=== PATIENT | male | born 1940 | race Hispanic/Latino ===

== ENCOUNTER 2019-03-27 10:04 | Inpatient (IN) | payer MEDICARE, MEDICAID ==
[2019-03-27 10:31] LABS: #Eosinphils 0.2 thou/uL (0.0-0.7); #Lymphocytes 1.5 thou/uL (1.20-3.40); #Monocytes 0.4 thou/uL (0.11-0.59); #Neutrophils 3.9 thou/uL (1.40-6.50); %Basophils 0.4 % (0.0-1.0); %Eosinophils 2.9 % (0.0-10.0); %Neutrophils 65.7 % (42.0-75.0); Hemoglobin 15.9 g/dL (14.0-18.0); Mean Corpuscular HGB CONC 34.1 g/dL (32.0-36.0); Mean Corpuscular Hemoglobin 31.7 pg (27.0-31.0); Mean Platelet Volume 8.7 fL (7.4-10.4); Platelet Count 141 thou/uL (130-400); Red Blood Cell (RBC) Count 5.01 mill/uL (4.70-6.10)
--- NOTE | 2019-03-27 10:43 | RAD ---
PORTABLE CHEST ONE VIEW: 03/27/2019 10:35 a.m. HISTORY: Chest pain. FINDINGS: The heart size is borderline. The aorta is tortuous. The lungs are well expanded without focal area s of consolidation, pneumothoraces, or pleural effusions. IMPRESSION: No acute process. POS: RAFAEL
[2019-03-27 10:50] LABS: ALT (SGPT) 24 U/L (8-55); AST (SGOT) 20 U/L (5-34); Alkaline Phosphatase 87 U/L (40-150); Anion Gap 13 mmol/L (10-20); BUN (Urea Nitrogen) 19 mg/dL (8.4-25.7); Bilirubin, Total 0.7 mg/dL (0.2-1.2); Calc. Creatinine Clearance 0 mL/min (70-130); Carbon Dioxide 24 mmol/L (23-31); Chloride 108 mmol/L (98-107); Estimated GFR-MDRD 45; Globulin 2.7 g/dL (2.4-3.5); Glucose 126 mg/dL (83-110); Protein, Total 6.7 g/dL (5.8-8.1); Sodium 141 mmol/L (136-145)
[2019-03-27 11:17] LABS: CKMB 0.8 ng/mL (0-6.6)
[2019-03-27] MEDS ORDERED: Nitroglycerin 2% Ointment 1 INCH/1 GM Packet ONE (11:28)
[2019-03-27] MEDS ORDERED: Aspirin 325 MG TAB ONE (11:28)
[2019-03-27] MEDS ORDERED: Acetaminophen 325 MG TAB PO PRN ×2 (12:59→13:14)
[2019-03-27] MEDS ORDERED: Ondansetron PF 4 MG/2 ML Vial IVP PRN (12:59)
[2019-03-27] MEDS ORDERED: Ondansetron ODT 4 MG TAB SL PRN (12:59)
[2019-03-27] MEDS ORDERED: Senokot S 8.6-50 MG TAB PO PRN (13:14)
[2019-03-27 13:49] LABS: Troponin I 0.044 ng/mL (< 0.028)
[2019-03-27] MEDS ORDERED: HumaLOG 300 UNITS/3 ML VIAL SC PRN (14:07)
[2019-03-27] MEDS ORDERED: Dextrose 5% in Water 1,000 ML IV PRN (14:07)
[2019-03-27] MEDS ORDERED: Dextrose 50% Abboject 50 ML SYRINGE SLOW IVP PRN (14:07)
[2019-03-27] MEDS ORDERED: Enoxaparin Sodium 80 MG/0.8 ML SYRINGE SC SCH ×2 (14:30→21:00)
[2019-03-27 17:01] LABS: Troponin I 0.038 ng/mL (< 0.028)
--- NOTE | 2019-03-27 19:52 | HP ---
CHIEF COMPLAINT: Chest pain. HISTORY OF PRESENT ILLNESS: The patient is a 78-year-old male with a history of diabetes, hypertension, hyperlipidemia, and CAD with stents x2 sometimes in 2010, I believe, the patient's family is not sure. The patient came in today with worsening chest discomfort. Upon talking with the patient who is not a very good historian, his helped out some. She stated that for the past 6 days his chest pain has worsened. They were at a camping trip today and he was found on his niece having significant amount of chest pain, which concerned the so they packed up early and brought him to the closest ER, which was [facility]. His also states that he has been having some shortness of breath on exertion going on for some time. She could not exactly tell me how many months or days. However, for the past 6 days, he has been having worsening shortness of breath on exertion and chest tightness with radiating pain to his left jaw. He denies any fevers or chills. He denies any nausea, vomiting, or diaphoresis. The patient's last stress test was about 2 years ago. He has not followed up with his personal clothing laundry aide for about a year. He does have a followup appointment in April with his personal clothing laundry aide. PAST MEDICAL HISTORY: History of CAD stents x2. He has a history of diabetes, hypertension, and high cholesterol. FAMILY HISTORY: Parents having strokes. PAST SURGICAL HISTORY: He has just had stents x2. He has had some foot surgery on his right foot. SOCIAL HISTORY: He was a former smoker. Currently, denies any smoking, alcohol, or drug use. He is a full code. Lives with his family. His personal clothing laundry aide is in [place]. REVIEW OF SYSTEMS: All negative except for the ones mentioned above in the HPI. PHYSICAL EXAMINATION: VITAL SIGNS: Are as of the following; temperature 97.4, pulse 66, respirations 18, O2 saturation 96% on room air, and blood pressure 140/74. GENERAL: He is awake, alert, and oriented x3. Does not appear in any distress. CV: S1 and S2 present. No murmurs, rubs, or gallops. LUNGS: Clear to auscultation. No rhonchi or wheezes noted. ABDOMEN: Soft and nontender. Bowel sounds are present x2. EXTREMITIES: No edema. Pedal pulses are present x2. NEUROVASCULAR: There were no focal deficits noted. SKIN: No cuts, lesions, or bruises noted. LABORATORY RESULTS: As of the following; WBCs of 6.0, hemoglobin of 15.9, hematocrit of 46.6, platelets of 141. Chemistry; sodium of 141, potassium of 4.0, BUN of 19, creatinine of 1.50. His troponins are mildly elevated at 0.042 and 0.044. Chest x-ray that was done did not show any acute abnormalities. His EKG indicates a left bundle branch block. I am not sure this is new since he has never been here before. He is from [place]. ASSESSMENT AND PLAN: The patient is a 78-year-old male, who comes into the hospital with complaints of chest pain. 1. Onq-MM-[id number] myocardial infarction. The patient does have indeterminate troponins. Given his history of chest pain, he is not a very good historian. However, according to the family and the way the patient was describing his symptoms, this could be concern given his history of hypertension, diabetes, history of coronary artery disease, and his age, we will go ahead and start him on Lovenox 1 mg/kg b.i.d. I will consult Cardiology. Continue to trend his troponins. He may require stress test even at cardiac catheterization. We will continue the statin. We will check lipid panel in the morning. Continue his diabetic medications. 2. Chronic kidney disease, stage 3. We will continue to monitor. We will start him on some IV hydration. 3. Diabetes. We will continue his Lantus and also add sliding scale insulin. 4. Hypertension. We will continue his home medications. 5. Deep venous thrombosis prophylaxis. We will already put the patient on Lovenox 1 mg/kg that will cover for DVT prophylaxis. Job ID: [id number]
[2019-03-27] MEDS: Atorvastatin Calcium 20 MG TAB PO SCH (20:28)
[2019-03-27] MEDS: Gabapentin 300 MG CAP PO SCH (20:28)
[2019-03-27] MEDS: Mirtazapine 15 MG Soltab PO SCH (20:29)
--- NOTE | 2019-03-27 21:15 | CON ---
DATE OF CONSULTATION: HISTORY OF PRESENT ILLNESS: Jamil Pérez is a pleasant 78-year-old male from the [facility], admitted with chest discomfort. He does not recall what year, but many years in the past, he had 2 stents placed at one time in his coronary arteries. He followed with his insurance claims processor regularly, but has not seen him in one year. Over the last 6 days, he has started noticing exertional chest pressure associated with shortness of breath. No vomiting or diaphoresis. This usually will occur with walking and be relieved with rest in 15-20 minutes. He also has had one or two nocturnal episodes. He was on a camping trip and had similar type of symptoms with radiation of pain to his left jaw and his family became concerned and so brought him to the nearest hospital which was [facility]. At the present time, he denies any chest discomfort. PAST MEDICAL HISTORY: Coronary artery disease, diabetes, hypertension, hypercholesterolemia. MEDICATIONS: 1. Aspirin 81 daily. 2. Amlodipine 10 mg daily. 3. Wellbutrin 150 daily. 4. Carvedilol 6.25 b.i.d. 5. Vitamin D. 6. B12. 7. Furosemide 40 daily. 8. Gabapentin 300 mg at bedtime. 9. Lantus 20 units q.a.m. 10. Isosorbide mononitrate 60 daily. 11. Victoza subcu daily. 12. Mirtazapine 15 mg at bedtime. 13. Protonix 40 daily. 14. Pravastatin 80 at bedtime. 15. Triamcinolone nasal spray. ALLERGIES: NONE. SOCIAL HISTORY: He stopped smoking 20 years ago and smoked a pack per day. He does not drink. FAMILY HISTORY: Negative for coronary artery disease except for a sister who recently had bypass surgery. REVIEW OF SYSTEMS: A 10-point review of systems is otherwise unremarkable. PHYSICAL EXAMINATION: VITAL SIGNS: Blood pressure 140/79, pulse 76. HEENT: PERRL. NECK: Supple. CHEST: Clear. CARDIAC: S1 and S2 are normal without any S3, S4, or murmurs. Carotid upstroke is normal without bruits. ABDOMEN: Normal bowel sounds without tenderness or organomegaly. EXTREMITIES: Reveal no clubbing, cyanosis, or edema. NEUROLOGIC: Grossly intact. SKIN: Warm and dry. LABORATORY DATA: EKG revealed normal sinus rhythm with left bundle-branch block. Troponin I is up to 0.044. Sodium 141, potassium 4.0, chloride 108, carbon dioxide 24, BUN 19, creatinine 1.50, glucose 126. CBC is unremarkable. IMPRESSION: 1. History compatible with acute coronary syndrome with increasing exertional chest discomfort over the last 6 days. 2. History of previous coronary artery stent placement. He states he did not have any bleeding problems with the medicines that he had to take after his stents were placed. 3. Hypertension. 4. Diabetes. 5. Hypercholesterolemia. 6. Chronic kidney disease. 7. Left bundle branch block. RECOMMENDATIONS: I would resume his carvedilol 6.[address] also [address] him on aspirin 325 q.a.m. He has already received loading dose of aspirin in the emergency room. Echocardiogram will be performed to assess left ventricular function. It also was recommended he undergo cardiac catheterization. Risks of this were discussed with the patient's including , myocardial infarction, dye reaction, vascular injury, CVA, transfusion, limb loss, renal loss, etc. Also risks of intervention with PTCA and stent placement were discussed including , myocardial infarction, emergent CABG, restenosis, stent thrombosis, vessel perforation, etc. We discussed bare metal stent versus drug-eluting stents. He has never had any gastrointestinal bleeding or significant stroke. He does not have any upcoming surgery and overall it is recommended that a drug-eluting stent be placed if required. Job ID: [id number] MTDD
[2019-03-27] MEDS: Sodium Chloride 0.9% 1,000 ML IV SCH (21:22)
[2019-03-27] MEDS: Communication Order-Pharmacy FS SCH (21:31)
[2019-03-28 05:34] LABS: #Eosinphils 0.2 thou/uL (0.0-0.7); #Lymphocytes 1.5 thou/uL (1.20-3.40); #Monocytes 0.4 thou/uL (0.11-0.59); #Neutrophils 3.2 thou/uL (1.40-6.50); %Basophils 0.5 % (0.0-1.0); %Lymphocytes 28.8 % (21.0-51.0); %Neutrophils 59.7 % (42.0-75.0); Hemoglobin 15.1 g/dL (14.0-18.0); Mean Corpuscular HGB CONC 33.8 g/dL (32.0-36.0); Mean Corpuscular Hemoglobin 31.5 pg (27.0-31.0); Mean Corpuscular Volume 93.4 fL (78.0-98.0); Mean Platelet Volume 8.7 fL (7.4-10.4); Platelet Count 137 thou/uL (130-400); RBC Distribution Width 11.9 % (11.5-14.5); Red Blood Cell (RBC) Count 4.79 mill/uL (4.70-6.10); White Blood Cell (WBC) Count 5.3 thou/uL (4.8-10.8)
[2019-03-28] MEDS: Amlodipine 10 MG TAB PO SCH (05:55)
[2019-03-28] MEDS: Bupropion 150 MG SR TAB PO SCH (05:55)
[2019-03-28 05:56] LABS: Anion Gap 14 mmol/L (10-20); BUN (Urea Nitrogen) 22 mg/dL (8.4-25.7); Calc. Creatinine Clearance 43 mL/min (70-130); Calcium 9.4 mg/dL (7.8-10.44); Carbon Dioxide 25 mmol/L (23-31); Chloride 107 mmol/L (98-107); Estimated GFR-MDRD 44; Glucose 113 mg/dL (83-110); Potassium 3.4 mmol/L (3.5-5.1); Sodium 143 mmol/L (136-145)
[2019-03-28] MEDS: Carvedilol 6.25 MG TAB PO SCH ×2 (05:56→17:24)
[2019-03-28] MEDS: Aspirin 325 mg Enteric Coated Tablet PO SCH (05:56)
[2019-03-28] MEDS: Insulin Glargine 20 UNITS in Pre-Filled Syringe 1 EACH SC SCH (08:15)
[2019-03-28] MEDS: Sodium Chloride 0.9% 1,000 ML IV SCH ×2 (08:19→09:05)
[2019-03-28] MEDS ORDERED: Iopamidol 370 76% 100 ML VIAL ONE (09:08)
[2019-03-28] MEDS ORDERED: Iopamidol 370 76% 50 ML VIAL FS ONE (09:08)
[2019-03-28] MEDS: Fluticasone Propionate Nasal Spray 16 gm Bottle NASAL PRN (09:23)
[2019-03-28] MEDS ORDERED: Heparin 10,000 UNITS/1 ML VIAL ONE (12:03)
[2019-03-28] MEDS ORDERED: Lidocaine 1% (PF) 30 ML VIAL ONE (12:04)
[2019-03-28] MEDS ORDERED: Fentanyl 100 MCG/2 ML VIAL ONE (13:03)
[2019-03-28] MEDS ORDERED: Midazolam HCl 2 mg/2 ml Vial ONE (13:03)
[2019-03-28] MEDS ORDERED: Protamine Sulfate 50 MG/5 ML VIAL ONE (13:25)
[2019-03-28] MEDS ORDERED: Sodium Chloride 0.9% 200 ML IV PRN (13:44)
[2019-03-28] MEDS ORDERED: Acetaminophen/Codeine 30-300mg Tablet PO PRN ×2 (13:44)
[2019-03-28] MEDS ORDERED: Sodium Chloride 0.9% 1,000 ML IV SCH ×2 (13:46→20:00)
[2019-03-28] MEDS: Nitroglycerin 0.4 MG TAB (25 Tab Bottle) SL PRN ×2 (17:23→23:45)
[2019-03-28] MEDS ORDERED: Communication Order-Pharmacy FS ONE (17:44)
[2019-03-28] MEDS: Mirtazapine 15 MG Soltab PO SCH (21:38)
[2019-03-28] MEDS: Gabapentin 300 MG CAP PO SCH (21:39)
[2019-03-28] MEDS: Docusate 100 MG CAP PO SCH (21:39)
[2019-03-28] MEDS: Atorvastatin Calcium 20 MG TAB PO SCH (21:39)
[2019-03-28] MEDS: Communication Order-Pharmacy FS SCH (21:40)
--- NOTE | 2019-03-29 00:27 | CON ---
DATE OF CONSULTATION: 03/28/2019 REQUESTING PHYSICIAN: Dr. Rishi Hightower. REGULAR ASSOCIATE PROFESSOR OF MATHEMATICS: Dr. Shawn Freeman in [place], [place]. CHIEF COMPLAINT: Chest pain and shortness of breath. HISTORY OF PRESENT ILLNESS: The patient is a 78-year-old diabetic former smoker with known coronary artery disease. The patient is a difficult historian and his helps with some of the details and with some of the explanations that occasionally require translation in U[place]. Different examiners have gotten different time frames for his LAD stenting ranging from the to the early . He apparently still regularly sees a auricular therapist in [place], but it has been about a year since his last scheduled appointment. In retrospect, the patient's exercise tolerance has been somewhat diminished for the last couple of months and he has been gradually developing some dyspnea on exertion. This has been much more dramatic over about the last week and over that same period of time he began developing some chest pressure and burning associated with that dyspnea on exertion. He was in this area on a camping trip and began having worsening symptoms including chest discomfort that for the 1st time radiated to his jaw. His chest pressure typically happens with walking, but this happened at rest at night on two occasions when he had the episode of chest discomfort radiating to his jaws. His family was worried enough to insist that he go to the nearest hospital. He had a left bundle branch block on his EKG and his troponins were mildly elevated and had a trivial change during a 6 hour period of observation. Cardiac catheterization today, however, shows extensive disease with serial high-grade lesions in his right coronary system and a very high-grade mid LAD lesion with a relatively small circumflex system and approximately 50% ostial left main lesion and tapering of the distal left main down to about 50% of the caliber of the mid left main. PAST MEDICAL HISTORY: Significant for his known coronary artery disease, diabetes, hypertension, hypercholesterolemia. HOME MEDICATIONS: 1. Coreg 6.25 mg b.i.d. 2. Norvasc 10 mg daily. 3. Isordil 60 mg daily. 4. Lasix 40 mg daily. 5. Pravastatin 80 mg at bedtime. 6. Lantus insulin 20 units daily. 7. Victoza 1.2 mg subcu once daily. 8. Neurontin 300 mg at bedtime. 9. Vitamin B12 2000 mcg and vitamin D3 5000 units daily. 10. Latanoprost eyedrops. 11. Triamcinolone nasal spray at bedtime. Protonix 40 mg daily. 12. Wellbutrin SR 150 mg daily. 13. Mirtazapine (Remeron) 15 mg at bedtime. 14. One examiner had elicited a history of a baby aspirin daily. His current medications are similar with his aspirin being increased to 325 mg a day. His statin has been switched to Lipitor 20 mg at bedtime. He is still on the same dose of Lantus, but he is on a sliding scale insulin rather than the Victoza. The patient apparently smoked for many years around a pack of cigarettes a day, but quit about 20 years ago. FAMILY HISTORY: Significant for sister who has had coronary bypass surgery. REVIEW OF SYSTEMS: Rather difficult. He gives a variable history and describing some visual disturbances that seem to be blurry vision affecting both eyes rather than any monocular symptoms. He describes some electric shooting type pain in his right leg that interferes with his walking. PHYSICAL EXAMINATION: GENERAL: He is 5 feet 5 inches, weighs 167 pounds. VITAL SIGNS: On presentation in the emergency room his heart rate was 72 and blood pressure 163/101. Currently, his heart rate is 64 and blood pressure 168/79, room air O2 saturations are in the 94-97 percent range. HEENT: He has no xanthelasma. NECK: No JVD. No carotid bruits. CHEST: Clear to auscultation. HEART: He has regular rate and rhythm. ABDOMEN: Soft and nontender without any masses or bruits. He has palpable radial, left femoral and palpable bilateral radial and dorsalis pedis pulses, palpable left femoral pulse. His right femoral was bandaged and I had a difficult time appreciating the pulse. Neither femoral was associated with bruits. He has no clubbing, cyanosis, or edema. He does seem to have some venous stasis pigmentation changes in his feet and in the right ankle. I was able to ballott the saphenous vein at the left ankle. Capillary refill in the toes on both feet was brisk. LABORATORY DATA: Showed a white count of 6.0, hemoglobin 15.9, hematocrit 46.6, and platelets 141,000. Overnight, his hemoglobin was 15.1, hematocrit 44.8. His electrolytes were normal. Glucose 126, BUN 19, creatinine 1.50 with a GFR 45 and recheck this morning, his glucose was 113, BUN 22, creatinine 1.54, and EGFR 43. Calcium is 10.0, albumin 4.0. LFTs were normal. His troponins were 0.042, 0.044 and 0.038. Blood sugars had been in the 99-129 range. His chest x-ray has borderline cardiomegaly and some aortic ectasia, but no obvious aortic knob calcifications. His EKG has left bundle branch block. His cardiac catheterization shows right dominant system with about 99% mid to distal right coronary lesion with a PDA that is grossly free of disease. He has a fairly prominent posterolateral branch. There is some disease in the terminal portion of it where it is a rather small vessel. There is a tiny first branch and a good-sized 2nd branch. There is a proximal 70% to 80% lesion and there is somewhere around a 50% ostial left main lesion and the left main tapers distally down to about 50% of the normal caliber in the mid portion. He has a relatively small circumflex system with what appears to represent an atrial branch that bifurcates with an OM that runs close to the groove and then a bifurcated OM. There is some mild narrowing in the circumflex proper, which is rather large first septal tubular products fabricator and then a trifurcated diagonal that comes off with two more lateral branches being modest size and the most medial branch being tiny. Beyond that is a very high-grade mid LAD lesion. LVEF is around 40% with an LV pressure of 145/9 with an EDP of 14 and aortic pressure on pullback was 137/69 with a mean of 93. IMPRESSION AND PLAN: Left main coronary disease with a very high-grade lesion in the mid left anterior descending artery and in the serial lesions in the right coronary system, mildly decreased left ventricular function. He is a diabetic with mild renal insufficiency, palpable pulses in his feet. No carotid bruits. No convincing central neurologic symptoms (in talking to him about his so-called stroke from many years ago and was told that his stroke is why he had his coronary stenting done). I will plan on hydrating post catheterization through today and tomorrow and plan on coronary artery bypass grafting the day after tomorrow. Job ID: [id number]
[2019-03-29] MEDS: Nitroglycerin 0.4 MG TAB (25 Tab Bottle) SL PRN (01:37)
[2019-03-29 05:47] LABS: Hemoglobin A1c 6.5 % (4.0-6.0)
[2019-03-29 06:04] LABS: Anion Gap 12 mmol/L (10-20); BUN (Urea Nitrogen) 17 mg/dL (8.4-25.7); Calc. Creatinine Clearance 51 mL/min (70-130); Calcium 8.9 mg/dL (7.8-10.44); Carbon Dioxide 20 mmol/L (23-31); Cardiac Risk 3.3 (Less than 4.5); Chloride 111 mmol/L (98-107); Cholesterol 124 mg/dl (< 200 Desired); Estimated GFR-MDRD 50; Glucose 114 mg/dL (83-110); HDL Cholesterol 38 mg/dL (>60 Neg Risk); LDL Cholesterol, Calculated 62 mg/dL; Potassium 3.7 mmol/L (3.5-5.1); Sodium 139 mmol/L (136-145); Triglycerides 121 mg/dL (Less than 150)
[2019-03-29] MEDS: Bupropion 150 MG SR TAB PO SCH (08:24)
[2019-03-29] MEDS: Carvedilol 6.25 MG TAB PO SCH ×2 (08:24→18:28)
[2019-03-29] MEDS: Amlodipine 10 MG TAB PO SCH (08:24)
[2019-03-29] MEDS: Docusate 100 MG CAP PO SCH ×2 (08:24→21:14)
[2019-03-29] MEDS: Aspirin 325 mg Enteric Coated Tablet PO SCH (08:24)
[2019-03-29] MEDS: Insulin Glargine 20 UNITS in Pre-Filled Syringe 1 EACH SC SCH (08:26)
[2019-03-29] MEDS: Sodium Chloride 0.9% 1,000 ML IV SCH (09:40)
--- NOTE | 2019-03-29 19:13 | PDOC.HOSPP ---
- Subjective Encounter Date: 03/29/19 Encounter Time: 10:30 Subjective: pt up in bed no complains - Objective Vital Signs & Weight: Vital Signs (12 hours) Temp Pulse Resp BP BP Pulse Ox 03/29/19 18:28 168/79 H 03/29/19 15:27 97.5 F L 65 16 124/68 95 03/29/19 11:51 97.5 F L 66 20 125/72 94 L 03/29/19 08:24 66 168/79 H 03/29/19 07:54 95 03/29/19 07:46 98 F 67 14 129/73 96 Weight Weight 177 lb 6.4 oz I&O: 03/28/19 03/29/19 03/30/19 06:59 06:59 06:59 Intake Total 1378 1440 Output Total 300 550 Balance 1078 890 Result Diagrams: 03/28/19 05:03 03/29/19 05:16 Additional Labs: Accuchecks 03/29/19 03/29/19 03/29/19 17:06 10:46 05:25 POC Glucose 160 H 186 H 111 H 03/28/19 20:42 POC Glucose 212 H ROS - Review of Systems Respiratory: denies: cough, dry, shortness of breath, hemoptysis, SOB with excertion, pleuritic pain, sputum, wheezing, other Cardiovascular: denies: chest pain, palpitations, orthopnea, paroxysmal noc. dyspnea, edema, light headedness, other Gastrointestinal: denies: nausea, vomitting, abdominal pain, diarrhea, constipation, melena, hematochezia, other - Medication Medications: Active Medications Generic Name Dose Route Start Last Admin Trade Name Wendi PRN Reason Stop Dose Admin Amlodipine Besylate 10 mg 03/28/19 09:00 03/29/19 08:24 Norvasc PO 03/30/19 08:59 10 mg DAILY SAILAJA Administration Aspirin 325 mg 03/28/19 09:00 03/29/19 08:24 Ecotrin PO 03/30/19 08:59 325 mg DAILY SAILAJA Administration Atorvastatin Calcium 20 mg 03/27/19 21:00 03/28/19 21:39 Lipitor PO 03/30/19 08:59 20 mg HS SAILAJA Administration Bupropion HCl 150 mg 03/28/19 09:00 03/29/19 08:24 Wellbutrin Sr PO 03/30/19 08:59 150 mg DAILY SAILAJA Administration Carvedilol 12.5 mg 03/29/19 17:00 03/29/19 18:28 Coreg PO 12.5 mg BID-WM SAILAJA Administration Docusate Sodium 100 mg 03/28/19 21:00 03/29/19 08:24 Colace PO 03/30/19 08:59 100 mg BID SAILAJA Administration Fluticasone Propionate 0 gm 03/28/19 08:46 03/28/19 09:23 Flonase Nasal [place] NASAL 03/30/19 08:59 1 spray PRN PRN Administration CONGESTION Gabapentin 300 mg 03/27/19 21:00 03/28/19 21:39 Neurontin PO 03/30/19 08:59 300 mg HS SAILAJA Administration Insulin Glargine 20 units/ 0.2 mls @ 0 mls/hr 03/28/19 09:00 03/29/19 08:26 Miscellaneous Medication SC 03/30/19 08:59 0.2 mls QAM SAILAJA Administration Sodium Chloride 1,000 mls @ 50 mls/hr 03/29/19 08:11 03/29/19 09:40 Normal Saline 0.9% IV 03/30/19 12:00 Not Given .Q20H SAILAJA Isosorbide Mononitrate 60 mg 03/28/19 09:00 03/29/19 08:24 Imdur PO 03/30/19 08:59 60 mg DAILY SAILAJA Administration Mirtazapine 15 mg 03/27/19 21:00 03/28/19 21:38 Remeron Soltab PO 03/30/19 08:59 15 mg HS SAILAJA Administration Miscellaneous Information 0 each 03/27/19 20:30 03/28/19 21:40 Communication Order-Pharmacy FS 03/30/19 08:59 Not Given 2030 SAILAJA Nitroglycerin 0.4 mg 03/28/19 13:44 03/29/19 01:37 Nitrostat SL 03/30/19 08:59 0.4 mg Q5MIN PRN Administration Chest Pain Pantoprazole Sodium 40 mg 03/28/19 09:00 03/29/19 08:24 Protonix PO 03/30/19 08:59 40 mg DAILY SAILAJA Administration Sodium Chloride 10 ml 03/29/19 09:00 03/29/19 15:53 Flush - Normal Saline IVF Not Given Q12HR SAILAJA - Exam ENT: negative: normocephalic atraumatic, no oropharyngeal lesions, moist mucosa , dry oral mucosa Neck: negative: supple, symmetric, no JVD, no thyromegaly, no lymphadenopathy, no carotid bruit, JVD Heart: negative: RRR, no murmur, no gallops, no rubs, normal peripheral pulses, irregular, diminshed peripheral pulses, murmur present, II/IV, III/IV Hosp A/P (1) NSTEMI (non-ST elevated myocardial infarction) Code(s): I21.4 - NON-ST ELEVATION (NSTEMI) MYOCARDIAL INFARCTION Status: Acute (2) CAD (coronary artery disease) Code(s): I25.10 - ATHSCL HEART DISEASE OF [place] CORONARY ARTERY W/O ANG PCTRS Status: Acute (3) Diabetes Code(s): E11.9 - TYPE 2 DIABETES MELLITUS WITHOUT COMPLICATIONS Status: Acute - Plan pt up in bed no complains. will undergo CABG in am
--- NOTE | 2019-03-29 19:16 | PDOC.HOSPP ---
- Subjective Encounter Date: 03/28/19 Encounter Time: 11:30 Subjective: pt up in bed complains of some chest pain - Objective Vital Signs & Weight: Vital Signs (12 hours) Temp Pulse Resp BP BP Pulse Ox 03/29/19 18:28 168/79 H 03/29/19 15:27 97.5 F L 65 16 124/68 95 03/29/19 11:51 97.5 F L 66 20 125/72 94 L 03/29/19 08:24 66 168/79 H 03/29/19 07:54 95 03/29/19 07:46 98 F 67 14 129/73 96 Weight Weight 177 lb 6.4 oz I&O: 03/28/19 03/29/19 03/30/19 06:59 06:59 06:59 Intake Total 1378 1440 Output Total 300 550 Balance 1078 890 Result Diagrams: 03/28/19 05:03 03/29/19 05:16 Additional Labs: Accuchecks 03/29/19 03/29/19 03/29/19 17:06 10:46 05:25 POC Glucose 160 H 186 H 111 H 03/28/19 20:42 POC Glucose 212 H ROS - Review of Systems Cardiovascular: reports: chest pain. denies: palpitations, orthopnea, paroxysmal noc. dyspnea, edema, light headedness, other Gastrointestinal: denies: nausea, vomitting, abdominal pain, diarrhea, constipation, melena, hematochezia, other - Medication Medications: Active Medications Generic Name Dose Route Start Last Admin Trade Name Freq PRN Reason Stop Dose Admin Amlodipine Besylate 10 mg 03/28/19 09:00 03/29/19 08:24 Norvasc PO 03/30/19 08:59 10 mg DAILY SAILAJA Administration Aspirin 325 mg 03/28/19 09:00 03/29/19 08:24 Ecotrin PO 03/30/19 08:59 325 mg DAILY SAILAJA Administration Atorvastatin Calcium 20 mg 03/27/19 21:00 03/28/19 21:39 Lipitor PO 03/30/19 08:59 20 mg HS SAILAJA Administration Bupropion HCl 150 mg 03/28/19 09:00 03/29/19 08:24 Wellbutrin Sr PO 03/30/19 08:59 150 mg DAILY SAILAJA Administration Carvedilol 12.5 mg 03/29/19 17:00 03/29/19 18:28 Coreg PO 12.5 mg BID-WM SAILAJA Administration Docusate Sodium 100 mg 03/28/19 21:00 03/29/19 08:24 Colace PO 03/30/19 08:59 100 mg BID SAILAJA Administration Fluticasone Propionate 0 gm 03/28/19 08:46 03/28/19 09:23 Flonase Nasal [place] NASAL 03/30/19 08:59 1 spray PRN PRN Administration CONGESTION Gabapentin 300 mg 03/27/19 21:00 03/28/19 21:39 Neurontin PO 03/30/19 08:59 300 mg HS SAILAJA Administration Insulin Glargine 20 units/ 0.2 mls @ 0 mls/hr 03/28/19 09:00 03/29/19 08:26 Miscellaneous Medication SC 03/30/19 08:59 0.2 mls QAM SAILAJA Administration Sodium Chloride 1,000 mls @ 50 mls/hr 03/29/19 08:11 03/29/19 09:40 Normal Saline 0.9% IV 03/30/19 12:00 Not Given .Q20H SAILAJA Isosorbide Mononitrate 60 mg 03/28/19 09:00 03/29/19 08:24 Imdur PO 03/30/19 08:59 60 mg DAILY SAILAJA Administration Mirtazapine 15 mg 03/27/19 21:00 03/28/19 21:38 Remeron Soltab PO 03/30/19 08:59 15 mg HS SAILAJA Administration Miscellaneous Information 0 each 03/27/19 20:30 03/28/19 21:40 Communication Order-Pharmacy FS 03/30/19 08:59 Not Given 2030 SAILAJA Nitroglycerin 0.4 mg 03/28/19 13:44 03/29/19 01:37 Nitrostat SL 03/30/19 08:59 0.4 mg Q5MIN PRN Administration Chest Pain Pantoprazole Sodium 40 mg 03/28/19 09:00 03/29/19 08:24 Protonix PO 03/30/19 08:59 40 mg DAILY SAILAJA Administration Sodium Chloride 10 ml 03/29/19 09:00 03/29/19 15:53 Flush - Normal Saline IVF Not Given Q12HR SAILAJA - Exam Neck: negative: supple, symmetric, no JVD, no thyromegaly, no lymphadenopathy, no carotid bruit, JVD Heart: negative: RRR, no murmur, no gallops, no rubs, normal peripheral pulses, irregular, diminshed peripheral pulses, murmur present, II/IV, III/IV Respiratory: negative: CTAB, no wheezes, no rales, no ronchi, normal chest expansion, no tachypnea, normal percussion, rales, rhonchi, tachypneic, wheezes Hosp A/P (1) NSTEMI (non-ST elevated myocardial infarction) Code(s): I21.4 - NON-ST ELEVATION (NSTEMI) MYOCARDIAL INFARCTION Status: Acute (2) CAD (coronary artery disease) Code(s): I25.10 - ATHSCL HEART DISEASE OF [place] CORONARY ARTERY W/O ANG PCTRS Status: Acute (3) Diabetes Code(s): E11.9 - TYPE 2 DIABETES MELLITUS WITHOUT COMPLICATIONS Status: Acute - Plan 03/28 s/p cardiac cath will need CABG per report. cv surgery to see pt. pt up in bed no complains. will undergo CABG in am
[2019-03-29] MEDS: Gabapentin 300 MG CAP PO SCH (21:15)
[2019-03-29] MEDS: Atorvastatin Calcium 20 MG TAB PO SCH (21:15)
[2019-03-29] MEDS: Fluticasone Propionate Nasal Spray 16 gm Bottle NASAL PRN (23:29)
[2019-03-29] MEDS: Mirtazapine 15 MG Soltab PO SCH (23:42)
[2019-03-29] MEDS ORDERED: Mirtazapine 15 MG Soltab PO SCH (23:45)
[2019-03-29] MEDS: Communication Order-Pharmacy FS SCH (23:51)
[2019-03-30] MEDS: Sodium Chloride 0.9% 1,000 ML IV SCH ×3 (03:02→20:49)
[2019-03-30 04:46] LABS: Anion Gap 11 mmol/L (10-20); BUN (Urea Nitrogen) 20 mg/dL (8.4-25.7); Calc. Creatinine Clearance 51 mL/min (70-130); Calcium 8.8 mg/dL (7.8-10.44); Carbon Dioxide 21 mmol/L (23-31); Chloride 113 mmol/L (98-107); Estimated GFR-MDRD 50; Glucose 125 mg/dL (83-110); Potassium 3.9 mmol/L (3.5-5.1); Sodium 141 mmol/L (136-145)
[2019-03-30] MEDS: Carvedilol 6.25 MG TAB PO SCH (05:31)
[2019-03-30] MEDS ORDERED: CEFAZOLIN 2 GM in Premix Bag 1 BAG IVPB SCH (06:00)
[2019-03-30] MEDS ORDERED: ceFAZolin Sodium (SDC) 2 GM/100 ML BAG ONE (06:16)
[2019-03-30] MEDS ORDERED: Midazolam HCl 2 mg/2 ml Vial ONE (06:35)
[2019-03-30] MEDS ORDERED: Fentanyl 100 MCG/2 ML VIAL ONE (06:35)
[2019-03-30] MEDS ORDERED: Dexmedetomidine 200 MCG/2 ML VIAL ONE (06:36)
[2019-03-30] MEDS ORDERED: Midazolam HCl 5 mg/5 ml Vial ONE (06:36)
[2019-03-30] MEDS ORDERED: Vecuronium 10 MG VIAL ONE ×2 (06:36→10:57)
[2019-03-30] MEDS: Nitroglycerin 0.4 MG TAB (25 Tab Bottle) SL PRN (06:41)
[2019-03-30] MEDS ORDERED: Heparin 10,000 UNITS/1 ML VIAL 30,000 UNITS in Sodium Chloride 0.9% 1,000 ML FS SCH (07:00)
[2019-03-30] MEDS ORDERED: Albumin 5% 500 ML ONE (09:02)
[2019-03-30] MEDS ORDERED: Protamine Sulfate 250 MG/25 ML VIAL ONE (10:57)
[2019-03-30] MEDS ORDERED: Papaverine 60 MG/2 ML VIAL ONE (10:57)
[2019-03-30] MEDS ORDERED: Dexamethasone 20 MG/5 ML VIAL ONE (10:57)
[2019-03-30] MEDS ORDERED: Insulin Regular 300 UNITS/3 ML VIAL ONE (10:57)
[2019-03-30] MEDS ORDERED: PHENYLEPHRINE-NS 100 MCG/ML 10 ML SYRINGE ONE (10:57)
[2019-03-30] MEDS ORDERED: Mannitol 12.5 GM/50 ML ONE (10:57)
[2019-03-30] MEDS ORDERED: Ondansetron PF 4 MG/2 ML Vial ONE (10:57)
[2019-03-30] MEDS ORDERED: Calcium Chloride 1 GM/10 ML Abboject SYRINGE ONE (10:57)
[2019-03-30] MEDS ORDERED: Nitroglycerin 50 MG/250 ML BOT ONE (10:57)
[2019-03-30] MEDS ORDERED: Cardioplegic Soln 1,000 ML BAG ONE (10:57)
[2019-03-30] MEDS ORDERED: Esmolol 100 MG/10 ML VIAL ONE (10:57)
[2019-03-30] MEDS ORDERED: Potassium Chloride 60 MEQ/30 ML VIAL ONE (10:57)
[2019-03-30] MEDS ORDERED: Magnesium 5 GM/10 ML VIAL ONE (10:57)
[2019-03-30] MEDS ORDERED: Thrombin 5000 UNITS/5 ML VIAL ONE (10:57)
[2019-03-30] MEDS ORDERED: Heparin 30,000 units/30 ml VIAL ONE (10:57)
[2019-03-30] MEDS ORDERED: Heparin 5,000 UNITS/ML VIAL ONE (10:57)
[2019-03-30] MEDS ORDERED: ePHEDrine 50 MG/ML VIAL ONE (10:57)
[2019-03-30] MEDS ORDERED: Ketorolac Tromethamine 30 MG/ML VIAL ONE (10:57)
[2019-03-30] MEDS ORDERED: Aminocaproic Acid 5 GM/20 ML VIAL ONE (10:57)
[2019-03-30] MEDS ORDERED: Lidocaine 2% PF 100 mg/5 ml Syringe ONE (10:57)
[2019-03-30] MEDS ORDERED: Sodium Bicarb 50 MEQ/50 ML VIAL ONE (10:57)
[2019-03-30] MEDS ORDERED: Bisacodyl 5 MG TAB PO PRN (12:42)
[2019-03-30] MEDS ORDERED: Promethazine HCl 25 MG/ML VIAL IM PRN (12:42)
[2019-03-30] MEDS ORDERED: Fentanyl 100 MCG/2 ML VIAL SLOW IVP PRN ×2 (12:42)
[2019-03-30] MEDS ORDERED: DOPamine 400 MG/D5W 250 ML 250 ML IVPB PRN (12:42)
[2019-03-30] MEDS ORDERED: Guaifenesin DM 100-10/5 ML UDCUP PO PRN (12:42)
[2019-03-30] MEDS ORDERED: Ondansetron PF 4 MG/2 ML Vial IVP PRN (12:42)
[2019-03-30] MEDS ORDERED: Bisacodyl 10 MG SUPP PR PRN (12:42)
[2019-03-30] MEDS ORDERED: Nitroglycerin 50 MG/250 ML BOT 250 ML IVPB PRN (12:42)
[2019-03-30] MEDS ORDERED: Post-Op Insulin Drip Protocol IVPB ONE (12:42)
[2019-03-30] MEDS ORDERED: Mag-Al 1200 mg/1200 mg/30 ML UDCUP PO PRN (12:42)
[2019-03-30] MEDS ORDERED: hydrALAZINE 20 MG/ML VIAL SLOW IVP PRN (12:42)
[2019-03-30] MEDS ORDERED: Potassium Chloride 20 MEQ/100 ML PREMIX BAG IVPB PRN (12:42)
[2019-03-30] MEDS ORDERED: niCARdipine 25 MG in Sodium Chloride 0.9% 250 ML 250 ML IVPB PRN (12:42)
[2019-03-30] MEDS ORDERED: Acetaminophen 325 MG TAB PO PRN (12:42)
[2019-03-30] MEDS ORDERED: Hetastarch 6% 500 ML 500 ML IVPB PRN (12:42)
[2019-03-30] MEDS ORDERED: Dextrose 50% Abboject 50 ML SYRINGE SLOW IVP PRN (12:52)
[2019-03-30] MEDS ORDERED: HUMULIN R 100 UNITS in Sodium Chloride 0.9% 100 ML IVPB SCH (12:52)
[2019-03-30] MEDS ORDERED: Dextrose 5% in Water 1,000 ML IV PRN (12:52)
[2019-03-30] MEDS ORDERED: Insulin Regular 300 UNITS/3 ML VIAL SC PRN (12:52)
[2019-03-30 12:58] LABS: #Eosinphils 0.1 thou/uL (0.0-0.7); #Lymphocytes 0.5 thou/uL (1.20-3.40); #Monocytes 0.2 thou/uL (0.11-0.59); #Neutrophils 7.2 thou/uL (1.40-6.50); %Basophils 0.1 % (0.0-1.0); %Eosinophils 0.7 % (0.0-10.0); %Lymphocytes 5.7 % (21.0-51.0); %Monocytes 2.1 % (0.0-10.0); %Neutrophils 91.3 % (42.0-75.0); Mean Corpuscular HGB CONC 33.7 g/dL (32.0-36.0); Mean Corpuscular Hemoglobin 31.5 pg (27.0-31.0); Mean Corpuscular Volume 93.5 fL (78.0-98.0); Mean Platelet Volume 8.7 fL (7.4-10.4); Platelet Count 66 thou/uL (130-400); Red Blood Cell (RBC) Count 3.81 mill/uL (4.70-6.10); White Blood Cell (WBC) Count 7.9 thou/uL (4.8-10.8)
[2019-03-30 13:01] LABS: INR-International Normal Ratio 1.5; PTT 31.2 SEC (22.9-36.1); Prothrombin Time 17.9 SEC (12.0-14.7)
--- NOTE | 2019-03-30 13:12 | RAD ---
RADIOGRAPH CHEST 1 VIEW: DATE: 03/30/2019 TIME: 12:27 PM HISTORY: 78-year-old male status post open heart surgery COMPARISON: 03/27/2019 FINDINGS: New finding of widening of mediastinum with shaggy borders. Cardiomegaly. New sternotomy wires. New r ight subclavian central vascular catheter with distal tip overlying expected location of right atrium. No pneumothorax identified, but uncertainty regarding whether this is upright or supine posit ioning. No pulmonary edema. Mild patchy infiltrates at left base, probably atelectasis. No endotracheal tube or NG tube. Midline chest tubes at lower lung zone. IMPRESSION: Very recently status post open heart surgery.
[2019-03-30 13:14] LABS: Anion Gap 9 mmol/L (10-20); BUN (Urea Nitrogen) 18 mg/dL (8.4-25.7); Calc. Creatinine Clearance 61 mL/min (70-130); Calcium 8.3 mg/dL (7.8-10.44); Carbon Dioxide 20 mmol/L (23-31); Chloride 118 mmol/L (98-107); Estimated GFR-MDRD 61; Glucose 136 mg/dL (83-110); Potassium 4.2 mmol/L (3.5-5.1); Sodium 143 mmol/L (136-145)
--- NOTE | 2019-03-30 13:18 | OP ---
DATE OF PROCEDURE: 03/30/2019 PROCEDURES PERFORMED: Coronary artery bypass grafting x5 with a left internal mammary artery to the distal left anterior descending, separate reverse greater saphenous vein graft from the aorta to the diagonal and from the aorta to the obtuse marginal and sequential reverse greater saphenous vein graft from the aorta to the right coronary artery at the crux to the posterolateral branch of the right coronary artery. PREOPERATIVE DIAGNOSES: Coronary artery disease with unstable angina. POSTOPERATIVE DIAGNOSES: Coronary artery disease with unstable angina. HVAC INSTRUCTOR: Rodriguez Handley MD ANESTHESIA: General endotracheal anesthesia. INDICATIONS: The patient is a 78-year-old diabetic male with known coronary artery disease having had previous LAD stenting. In retrospect, he had been having some decrease in exercise tolerance over the last month or two. For about a week prior to admission, he had been having dyspnea on exertion and occasional chest pain. On the day of presentation, he had a more severe episode of chest pain and shortness of breath and the pain radiated to his jaw. He had mildly elevated troponins that remained fairly stable over in multiple draws and a left bundle branch block on EKG. Cardiac catheterization showed very high-grade lesions in his LAD and right coronary systems. Mild disease in the proximal circumflex and approximately 50% ostial and distal left main lesions. He had mildly decreased LV function. He is now taken to the operating room for surgical revascularization. FINDINGS: Pump time 107 minutes. Cross-clamp time 54 minutes. Good quality LIANA. The majority of the saphenous vein was of excellent quality. Below the knee, there was a segment that was grossly varicose and the very distal aspect was good size, but slightly thin walled. The LAD was 1.5 to 2 mm vessel. Both of the graftable branches of the diagonal were intramyocardial. The identified and grafted branch was about 2 mm. Both obtuse marginals were intramyocardial. The identified and grafted one was about 2 mm. The RCA at the crux had scattered nonobstructive plaque and was about 3 mm. The posterolateral branch was good quality and about 1.5 mm. The pericardium was loosely closed. Intraoperative JENNIFER showed his pre-revascularization LVEF to be around 35% or 40% with septal hypokinesis. Post-revascularization on no vasoactive drips, he had improved septal wall motion and an LVEF of 40% to 50%. NARRATIVE REPORT: After informed consent was obtained, the patient was taken to the operating room and placed in supine position on the operating table. After the induction of general anesthesia, the patient's left greater saphenous vein was ultrasonographically mapped and marked. His right upper chest was prepped and draped in sterile fashion and he was placed in Trendelenburg. A triple-lumen central line kit was used to place a right subclavian central line by the Seldinger technique. All 3 ports easily aspirated and flushed. The line was secured. The patient's torso, groins, and lower extremities were prepped and draped in sterile fashion. The greater saphenous vein was exposed just above the left knee and then endoscopically mobilized from groin to the mid to distal calf. One area in the mid thigh, large side branch, vein had to be ligated and divided through a separate skin incision. The vein was prepared for use as a graft and the harvest sites, where incisions were closed in layers of subcutaneous and subcuticular Vicryl. A median sternotomy was performed. The left internal mammary artery was harvested as a skeletonized in-situ graft through an extrapleural exposure from the xiphoid to the level of subclavian vein. Side branches were controlled with small hemoclips. The patient was heparinized. The mammary was ligated and divided distally. There was good flow through the mammary, which was instilled intraluminally with papaverine solution. The mammary bed was inspected for hemostasis. LIANA retractor was placed with a Sarabia retractor and the medial reflections of the left pleura were mobilized from apex to the low below the hilum. The pericardium was opened and marsupialized. The aorta was palpated and was soft. The heart was somewhat large and intrapericardial aorta was somewhat short. The pericardial reflection of his aorta was taken down. The aorta there was still soft. A double concentric pursestring of 2-0 Ethibond was placed in ascending aorta at the base of the arch and a single pursestring was placed in the right atrial appendage. Aortic and venous cannulae were inserted and secured by their pursestrings. The plane between the aorta and the pulmonary artery was developed. The heart was examined and the vessel to be bypassed were identified. A longitudinal slit was made in the pericardium anterior to the left phrenic nerve through which the mammary could be passed. An aortic cross-clamp was applied and cardioplegia was administered through an aortic root needle. When arrest have been achieved, attention was turned to the circumflex system. The initial two areas of exploration did not reveal coronary. Third area was explored and OM was identified. It was opened and grafted in end-to-side with reverse greater saphenous vein and running 6-0 Prolene suture. The anastomosis was tested by flushing cold cardioplegia down the graft. Attention was then turned to the right coronary system. The more proximal of the 2 terminal posterolateral branches was identified. It was opened near where it emerged on to the epicardium from the epicardial fat pad at the AV groove. Saphenous vein was anastomosed there end-to-side. The right coronary was then opened at the crux and a [id number] anastomosis was constructed from that posterolateral graft to the RCA. The diagonal was then exposed, where it ran intramyocardially as the more proximal portion was visible epicardially an extensive hard plaque. The intramyocardial segment was grafted end-to-side with saphenous vein. The LAD was then opened distally and the mammary was anastomosed with running 7-0 Prolene and tacked to the epicardium. The aortic cross-clamp was replaced with a partial occluding clamp and two aortotomies were made in the ascending aorta with a scalpel and punch incorporating the root needle site in the more proximal aortotomy. The right coronary sequential graft was brought around the right side of the heart and anastomosed to the more proximal aortotomy and the OM graft was brought along the left side of the heart and anastomosed to the more distal aortotomy. A longitudinal venotomy was made in the murphy of the OM vein graft proximal anastomosis and the diagonal graft was anastomosed there end-to-side with running Prolene. The diagonal graft was allowed to back bleed and the suture line secured. The partial occluding clamp was removed and the vein grafts were de-aired. The proximal anastomoses were marked with small hemoclips. The anastomoses were inspected for hemostasis. Bleeding points, where the myocardium anterolaterally had been explored in the search for target vessels were controlled with vein pledgeted Prolene suture. A posterior pericardial drain was brought out through a separate incision and secured with suture. Right atrial and right ventricular temporary epicardial pacing wires were placed. The patient was then from cardiopulmonary bypass. The patient was relatively bradycardic with heart rates in the 50 to 60 range. He was paced to 80. The aortic and venous cannulae were removed and their pursestring secured. Protamine was administered. When hemostasis was adequate, an anterior mediastinal drain was placed. A loose pericardial closure was affected by tacking together with the mobilized thymic fat pad and pericardial fat to drape over the heart. Vancomycin paste and platelet rich GPS were applied to the cut surfaces of the sternum. The sternum was reapproximated with #7 stainless steel wires. The fascia was closed over the wires with heavy Vicryl. The soft tissues were irrigated and treated with platelet poor GPS. The fascia was closed over the wires with heavy Vicryl. The subcutaneous tissue was reapproximated with running 2-0 Vicryl and the skin was closed with a running 3-0 Vicryl subcuticular suture and Steri-Strips. The wounds were dressed. The patient was awakened and extubated in the operating room and taken to the intensive care unit in stable condition. Job ID: [id number]
[2019-03-30] MEDS: Aspirin 325 MG TAB PO SCH (13:28)
--- NOTE | 2019-03-30 15:03 | PDOC.HOSPP ---
- Subjective Encounter Date: 03/30/19 Encounter Time: 11:30 Subjective: pt up in bed no complains. s/p cabg. pt has been exubated. - Objective Vital Signs & Weight: Vital Signs (12 hours) Temp Pulse Resp BP BP BP Pulse Ox 03/30/19 12:34 97.6 F 80 10 L 104/86 96 03/30/19 12:30 94 L 03/30/19 05:31 141/68 H 03/30/19 03:12 97.9 F 62 15 157/73 H 96 Weight Weight 177 lb 7.554 oz Most Recent Monitor Data Heart Rate from ECG 80 NIBP 101/65 NIBP BP-Mean 77 Respiration from ECG 21 SpO2 92 I&O: 03/29/19 03/30/19 03/31/19 06:59 06:59 06:59 Intake Total 1440 1847 Output Total 550 955 Balance 890 892 Result Diagrams: 03/30/19 12:41 03/30/19 12:41 Additional Labs: Accuchecks 03/30/19 03/30/19 03/30/19 13:05 12:42 12:01 POC Glucose 112 H 130 H 137 H 03/30/19 03/30/19 03/30/19 11:44 10:34 10:07 POC Glucose 150 H 173 H 158 H 03/30/19 03/30/19 03/30/19 09:52 09:38 08:07 POC Glucose 141 H 144 H 121 H 03/29/19 03/29/19 21:17 17:06 POC Glucose 134 H 160 H ROS - Review of Systems Gastrointestinal: denies: nausea, vomitting, abdominal pain, diarrhea, constipation, melena, hematochezia, other Genitourinary: denies: dysuria, frequency, incontinence, hematuria, retention, other Musculoskeletal: denies: neck pain, shoulder pain, arm pain, back pain, hand pain, leg pain, foot pain, other - Medication Medications: Active Medications Generic Name Dose Route Start Last Admin Trade Name Freq PRN Reason Stop Dose Admin Albumin Human 12.5 gm 03/30/19 12:42 03/30/19 14:59 Albumin 5% IVPB 03/31/19 12:43 12.5 gm Q6H PRN Administration To Maintain SBP> 90 mmHG Aspirin 325 mg 03/30/19 12:42 03/30/19 13:28 Aspirin PO Not Given DAILY SAILAJA Sodium Chloride 1,000 mls @ 125 mls/hr 03/30/19 12:42 03/30/19 13:24 Normal Saline 0.9% IV 1,000 mls .Q8H SAILAJA Administration - Exam Neck: negative: supple, symmetric, no JVD, no thyromegaly, no lymphadenopathy, no carotid bruit, JVD Respiratory: negative: CTAB, no wheezes, no rales, no ronchi, normal chest expansion, no tachypnea, normal percussion, rales, rhonchi, tachypneic, wheezes Gastrointestinal: negative: soft, non-tender, non-distended, normal bowel sounds , no palpable masses, no hepatomegaly, no splenomegaly, no bruit, no guarding, no rigidity, tender to palpation, distended, diminished bowl sounds, voluntary guarding Hosp A/P (1) NSTEMI (non-ST elevated myocardial infarction) Code(s): I21.4 - NON-ST ELEVATION (NSTEMI) MYOCARDIAL INFARCTION Status: Acute (2) CAD (coronary artery disease) Code(s): I25.10 - ATHSCL HEART DISEASE OF [place] CORONARY ARTERY W/O ANG PCTRS Status: Acute (3) Diabetes Code(s): E11.9 - TYPE 2 DIABETES MELLITUS WITHOUT COMPLICATIONS Status: Acute - Plan 03/28 s/p cardiac cath will need CABG per report. cv surgery to see pt. pt up in bed no complains. will undergo CABG in am 03/30 s/p cabg, pt has been extubated. will follow along.
[2019-03-30 17:09] LABS: Hemoglobin 12.1 g/dL (14.0-18.0)
[2019-03-30 17:26] LABS: Potassium 4.5 mmol/L (3.5-5.1)
[2019-03-30] MEDS: Famotidine/PF 20 mg/2ml Vial SLOW IVP SCH (20:49)
[2019-03-30] MEDS: HYDROcodone/Acetaminophen 5/325 mg Tablet PO PRN (21:42)
[2019-03-31] MEDS: HYDROcodone/Acetaminophen 5/325 mg Tablet PO PRN ×4 (01:36→20:59)
[2019-03-31 04:00] LABS: Anion Gap 12 mmol/L (10-20); BUN (Urea Nitrogen) 18 mg/dL (8.4-25.7); Calc. Creatinine Clearance 66 mL/min (70-130); Calcium 8.7 mg/dL (7.8-10.44); Carbon Dioxide 19 mmol/L (23-31); Chloride 117 mmol/L (98-107); Estimated GFR-MDRD 68; Glucose 123 mg/dL (83-110); Sodium 144 mmol/L (136-145)
[2019-03-31 04:15] LABS: #Lymphocytes 0.5 thou/uL (1.20-3.40); #Monocytes 0.6 thou/uL (0.11-0.59); #Neutrophils 8.9 thou/uL (1.40-6.50); %Lymphocytes 4.7 % (21.0-51.0); %Monocytes 5.8 % (0.0-10.0); %Neutrophils 89.4 % (42.0-75.0); Hemoglobin 10.5 g/dL (14.0-18.0); Mean Corpuscular HGB CONC 34.2 g/dL (32.0-36.0); Mean Corpuscular Hemoglobin 32.3 pg (27.0-31.0); Mean Corpuscular Volume 94.3 fL (78.0-98.0); Mean Platelet Volume 9.3 fL (7.4-10.4); Platelet Count 76 thou/uL (130-400); Red Blood Cell (RBC) Count 3.26 mill/uL (4.70-6.10); White Blood Cell (WBC) Count 9.9 thou/uL (4.8-10.8)
[2019-03-31] MEDS: Sodium Chloride 0.9% 1,000 ML IV SCH (04:59)
[2019-03-31] MEDS ORDERED: Dextrose 50% Abboject 50 ML SYRINGE SLOW IVP PRN (07:01)
[2019-03-31] MEDS ORDERED: Dextrose 5% in Water 1,000 ML IV PRN (07:01)
[2019-03-31] MEDS: Famotidine/PF 20 mg/2ml Vial SLOW IVP SCH (08:46)
[2019-03-31] MEDS: Aspirin 325 MG TAB PO SCH (08:46)
--- NOTE | 2019-03-31 10:32 | RAD ---
PORTABLE AP CHEST XRAY: HISTORY: Post open heart surgery. COMPARISON: 03/30/2019. FINDINGS: Postsurgical changes related to median sternotomy are again noted. Right subclavian central venous c atheter and mediastinal drains remain in place. Cardiac silhouette is enlarged. There is increased density at the left lung base probably attributable to atelectasis. Mediastinal widening is present but less prominent on the prior exam and is again probably related to postsurgical changes. Pulmonar y vasculature is within normal limits. There is minimal linear atelectasis at the right lung base. No other interval change. IMPRESSION: 1. Lines and tubes stable in position. 2. Increased density left lung base probably attributable to atelectasis. 3. Findings related to coronary artery bypass graft. 4. Cardiomegaly. POS: RAFAEL
[2019-03-31] MEDS: Insulin Regular 300 UNITS/3 ML VIAL SC PRN ×3 (11:41→21:20)
[2019-03-31] MEDS ORDERED: Mag-Al 1200 mg/1200 mg/30 ML UDCUP PO PRN (11:48)
[2019-03-31] MEDS ORDERED: Nitroglycerin 0.4 MG TAB (25 Tab Bottle) SL PRN (11:48)
[2019-03-31] MEDS ORDERED: Artificial Tears 18 DROP/0.9 ML EA EYE PRN (11:48)
[2019-03-31] MEDS ORDERED: Guaifenesin DM 100-10/5 ML UDCUP PO PRN (11:48)
[2019-03-31] MEDS ORDERED: Mineral Oil ENEMA PR PRN (11:48)
[2019-03-31] MEDS ORDERED: diphenhydrAMINE 25 MG CAP PO PRN (11:48)
[2019-03-31] MEDS ORDERED: Bisacodyl 10 MG SUPP PR PRN (11:48)
[2019-03-31] MEDS ORDERED: Furosemide 40 MG/4 ML VIAL SLOW IVP SCH ×2 (12:00→18:00)
--- NOTE | 2019-03-31 13:48 | CON ---
DATE OF CONSULTATION: 03/31/2019 SERVICE: Pulmonary Medicine. REASON FOR CONSULTATION: ICU patient. HISTORY OF PRESENT ILLNESS: The patient is a 78-year-old male with past medical history significant for coronary artery disease. He presented to the emergency department with complaints of chest discomfort. Ultimately, he was discovered to have a 3-vessel disease in the mildly impaired left ventricular function. He went down for a semi-urgent coronary artery bypass graft x3 vessels on 30 of March. He is currently postop day #1 from that. He extubated comfortably without difficulties. At this point, he has no complaints of shortness of breath. He has a little cough, but not bringing up any phlegm. He is not having any fevers or chills. He has no hot and red swollen joints, rashes, or arthralgias. He is not having any bad nausea, vomiting, or diarrhea, though his appetite has yet to take up. PAST MEDICAL HISTORY: 1. Coronary artery disease. 2. Type 2 diabetes mellitus. 3. Hypertension. 4. Dyslipidemia. PAST SURGICAL HISTORY: 1. Percutaneous coronary intervention with stent placement x2. 2. Foot surgery on the right. FAMILY HISTORY: Noncontributory. SOCIAL HISTORY: He has a remote history of smoking. He has a greater than 50 pack-year history of smoking, but quit over 10 years ago. Denies any alcohol or illicit drugs. He has no exposure to chemicals, dust, asbestos, or tuberculosis. ALLERGIES: NO KNOWN DRUG ALLERGIES. MEDICATIONS: List of the patient's inpatient medications was reviewed. No specific updates were made. REVIEW OF SYSTEMS: General; head, ears, eyes, nose, throat; cardiovascular; respiratory; GI; ; musculoskeletal; neurologic; and skin are negative except as mentioned in the HPI. PHYSICAL EXAMINATION: VITAL SIGNS: Afebrile, pulse 77, blood pressure 144/70, respirations 32, and saturation 94% on 2 L nasal cannula. GENERAL: The patient is awake and alert, in no apparent distress. LUNGS: Decent air entry. Crackles are present. No prolonged expiratory phase or wheezing is appreciated. HEART: Normal rate and regular. ABDOMEN: Soft, nontender, and nondistended. Bowel sounds are positive. MUSCULOSKELETAL: No cyanosis or clubbing. There is 1 to 2+ pitting in the bilateral lower extremities. NEUROLOGIC: Grossly nonfocal. LABORATORY DATA: WBC 9.9, hemoglobin 10.5, platelets 76,000. INR 1.5. Basic metabolic profile is essentially unremarkable. Creatinine is downtrending to 1.06 as of today. Prior liver function studies were unremarkable. His troponin had previously peaked at 0.044. IMAGIN. Chest x-ray demonstrates new sternotomy wires. Right subclavian central venous catheter is in good position. There are multiple wires and leads overlie the chest. Cephalization is present on the left. 2. Echocardiogram demonstrates a 45% to 50% ejection fraction with some diastolic dysfunction present. No significant valvular abnormalities are mentioned. ASSESSMENT: 1. Acute hypoxic respiratory failure. 2. Acute on chronic systolic and diastolic heart failure. 3. Coronary artery disease, status post coronary artery bypass graft x5 vessels, postoperative day #1. 4. [id number]-[id number] myocardial infarction. 5. Chronic kidney disease, stage 3. 6. Type 2 diabetes mellitus. DISCUSSION AND PLAN: The patient is doing fine in the postop period. He is a little bit volume up. As such, I am going to interrupt his IV fluids and initiate some diuretics. We will watch his electrolytes in the morning. Pulmonary/ Critical Care will continue to follow along. 70 minutes have been devoted to this patient in various activities. I personally reviewed all imaging studies and laboratory data noted within this document. For fifty percent of this time, I was interacting with the patient at the bedside or coordinating care with the care team. For the remainder of the time I was immediately available to the patient in the hospital unit. Job ID: [id number] MTDD
[2019-03-31] MEDS: Atorvastatin Calcium 20 MG TAB PO SCH (20:58)
[2019-03-31] MEDS: Mirtazapine 15 MG TAB PO SCH (20:58)
[2019-03-31] MEDS: Gabapentin 300 MG CAP PO SCH (20:59)
[2019-03-31] MEDS: Zolpidem Tartrate 5 MG TAB PO PRN (20:59)
[2019-03-31] MEDS: Latanoprost 0.005% Ophth Soln 2.5 ml Bottle EA EYE SCH (21:00)
[2019-04-01 04:08] LABS: #Lymphocytes 0.9 thou/uL (1.20-3.40); #Monocytes 0.9 thou/uL (0.11-0.59); #Neutrophils 8.3 thou/uL (1.40-6.50); %Eosinophils 0.1 % (0.0-10.0); %Lymphocytes 8.4 % (21.0-51.0); %Monocytes 9.3 % (0.0-10.0); %Neutrophils 82.2 % (42.0-75.0); Hemoglobin 10.3 g/dL (14.0-18.0); Mean Corpuscular HGB CONC 33.6 g/dL (32.0-36.0); Mean Corpuscular Hemoglobin 31.7 pg (27.0-31.0); Mean Corpuscular Volume 94.2 fL (78.0-98.0); Mean Platelet Volume 9.1 fL (7.4-10.4); Platelet Count 86 thou/uL (130-400); RBC Distribution Width 12.4 % (11.5-14.5); Red Blood Cell (RBC) Count 3.26 mill/uL (4.70-6.10); White Blood Cell (WBC) Count 10.1 thou/uL (4.8-10.8)
[2019-04-01 04:29] LABS: Anion Gap 12 mmol/L (10-20); BUN (Urea Nitrogen) 33 mg/dL (8.4-25.7); Calc. Creatinine Clearance 34 mL/min (70-130); Carbon Dioxide 22 mmol/L (23-31); Chloride 112 mmol/L (98-107); Estimated GFR-MDRD 34; Glucose 108 mg/dL (83-110); Magnesium 2.3 mg/dL (1.6-2.6); Phosphorus 2.6 mg/dL (2.3-4.7); Potassium 3.6 mmol/L (3.5-5.1); Sodium 142 mmol/L (136-145)
--- NOTE | 2019-04-01 07:19 | PRG ---
DATE OF SERVICE: 04/01/2019 SERVICE: Pulmonary Medicine. INTERVAL HISTORY: Overnight, the patient had a little bit of confusion. He actually stood up and tried to tug on his Holland a little bit. He had a little bit of trauma associated with that. Later on, the thing was removed because he got a little bit confused, and was threatening to remove it on his own. Since then, he has had a difficult time voiding. He has been standing up most of the night, using the restroom, but he has been unsuccessful. Overnight, his creatinine actually went up a little bit. He denies any current shortness of breath, nausea, or vomiting. Otherwise, there has been no interval change in his condition. PHYSICAL EXAMINATION: VITAL SIGNS: Afebrile, pulse 80, blood pressure 126/81, respirations 17, saturation 95%, currently on 2 L nasal cannula. GENERAL: The patient is awake and alert, in no apparent distress. LUNGS: Decent air entry. Dependent crackles are present, but much improved. HEART: Normal rate, regular. ABDOMEN: Soft. Nontender, nondistended. Bowel sounds are positive. There is some hypogastric fullness. : No Holland catheter. NEUROLOGIC: Grossly nonfocal. LABORATORY DATA: WBC 10.1, hemoglobin 10.3, platelets 86,000 and gently up trending. INR 1.5. Creatinine 1.95, which is up trending. BUN 33. Basic metabolic profile is otherwise unremarkable. Potassium 3.6, magnesium and phosphorous fall within normal limits. IMAGING: Chest x-ray demonstrates sternotomy wires are once again noted. There is no significant right-sided pathology. There is left-sided pleural parenchymal disease. I cannot appreciate the mediastinal tubes or drains. The right subclavian central venous catheter remains in good position. No obvious pneumothorax, or consolidating lesions are identified otherwise. ASSESSMENT: 1. Acute hypoxic respiratory failure, improving. 2. Coronary artery disease, status post coronary artery bypass graft x5 vessels, postop day 2. 3. [id number] myocardial infarction. 4. Acute kidney injury on chronic kidney disease, 3. 5. Type 2 diabetes mellitus. 6. Likely urinary retention. DISCUSSION AND PLAN: I believe the patient's acute kidney injury is secondary to acute tubular necrosis. At this point, I do not want the patient on either IV fluids, or Lasix. This kidney injury is going to evolve through time regardless of our intervention. I am going to have the patient urinate to the best of his ability. Afterward, we will put a Holland catheter in. If his postvoid residual is elevated, the Holalnd catheter will be left behind once again. I will give the patient a single dose of potassium. Pulmonary/Critical Care will continue to follow. Physical Therapy will continue working on mobilization efforts. Pulmonary will continue to follow so long as he remains in the ICU. Job ID: [id number]
[2019-04-01] MEDS ORDERED: Furosemide 40 MG TAB PO SCH (07:30)
--- NOTE | 2019-04-01 08:00 | RAD ---
PORTABLE CHEST 1 VIEW: DATE: 04/01/2019. TIME: 4:48 a.m. HISTORY: CABG. FINDINGS/IMPRESSION: Comparison is made with the exam of previous day. No significant interval change is seen. POS: RAFAEL
[2019-04-01] MEDS: Aspirin 325 mg Enteric Coated Tablet PO SCH (10:38)
[2019-04-01] MEDS: Bupropion 150 MG SR TAB PO SCH (10:38)
[2019-04-01] MEDS: Sodium Chloride 0.9% 1,000 ML IV SCH (11:11)
[2019-04-01] MEDS: Insulin Regular 300 UNITS/3 ML VIAL SC PRN (12:21)
--- NOTE | 2019-04-01 14:39 | PDOC.HOSPP ---
- Subjective Encounter Date: 04/01/19 Encounter Time: 12:30 Subjective: pt up in chair complains of some pain to his sternum area - Objective Vital Signs & Weight: Vital Signs (12 hours) Temp Pulse Pulse BP BP Pulse Ox Pulse Ox 04/01/19 12:49 98 90 159/81 H 135/90 93 L 04/01/19 12:00 97.9 F 04/01/19 09:12 97 93 151/69 H 157/70 H 95 04/01/19 08:20 96 04/01/19 08:00 97.9 F 04/01/19 04:00 98.2 F Pulse Ox 04/01/19 12:49 96 04/01/19 12:00 04/01/19 09:12 95 04/01/19 08:20 04/01/19 08:00 04/01/19 04:00 Weight Weight 179 lb 14.355 oz Most Recent Monitor Data Heart Rate from ECG 93 NIBP 142/71 NIBP BP-Mean 94 Respiration from ECG 25 SpO2 97 I&O: 03/31/19 04/01/19 04/02/19 06:59 06:59 06:59 Intake Total 5402.6 1626 360 Output Total 2237 2330 770 Balance 3165.6 -704 -410 Result Diagrams: 04/01/19 03:50 04/01/19 03:50 Additional Labs: Accuchecks 04/01/19 04/01/19 03/31/19 11:59 06:21 21:22 POC Glucose 207 H 111 H 249 H 03/31/19 16:03 POC Glucose 176 H ROS - Review of Systems ENT: denies: ear pain, ear discharge, nose pain, nose discharge, nose congestion , mouth pain, mouth swelling, throat pain, throat swelling, other Cardiovascular: reports: chest pain Gastrointestinal: denies: nausea, vomitting, abdominal pain, diarrhea, constipation, melena, hematochezia, other Genitourinary: denies: dysuria, frequency, incontinence, hematuria, retention, other - Medication Medications: Active Medications Generic Name Dose Route Start Last Admin Trade Name Freq PRN Reason Stop Dose Admin Hydrocodone Bitart/Acetaminophen 1 tab 03/30/19 12:42 03/31/19 09:20 [place] 5/325 PO 1 tab Q4H PRN Administration Moderate Pain (4-6) Hydrocodone Bitart/Acetaminophen 2 tab 03/30/19 12:42 03/31/19 20:59 [place] 5/325 PO 2 tab Q4H PRN Administration Severe Pain (7-10) Aspirin 325 mg 04/01/19 09:00 04/01/19 10:38 Ecotrin PO 325 mg DAILY SAILAJA Administration Atorvastatin Calcium 20 mg 03/31/19 21:00 03/31/19 20:58 Lipitor PO 20 mg HS SAILAJA Administration Bupropion HCl 150 mg 04/01/19 09:00 04/01/19 10:38 Wellbutrin Sr PO 150 mg DAILY SAILAJA Administration Gabapentin 300 mg 03/31/19 21:00 03/31/19 20:59 Neurontin PO 300 mg HS SAILAJA Administration Sodium Chloride 1,000 mls @ 50 mls/hr 04/01/19 08:15 04/01/19 11:11 Normal Saline 0.9% IV 1,000 mls .Q20H SAILAJA Administration Insulin Human Regular 0 units 03/31/19 07:01 04/01/19 12:21 Humulin R SC 6 unit .AGGRESSIVE SLIDING PRN Administration Aggressive Sliding Scale Latanoprost 1 drop 03/31/19 21:00 03/31/19 21:00 Xalatan 0.005% Ophth Soln EA EYE 1 drop HS SAILAJA Administration Mirtazapine 15 mg 03/31/19 21:00 03/31/19 20:58 Remeron PO 15 mg HS SAILAJA Administration Pantoprazole Sodium 40 mg 04/01/19 09:00 04/01/19 10:38 Protonix PO 40 mg DAILY SAILAJA Administration Sodium Chloride 10 ml 03/31/19 21:00 04/01/19 10:38 Flush - Normal Saline IVF 10 ml Q12HR SAILAJA Administration Zolpidem Tartrate 5 mg 03/31/19 11:48 03/31/19 20:59 Ambien PO 5 mg HSPRN PRN Administration Insomnia - Exam Neck: negative: supple, symmetric, no JVD, no thyromegaly, no lymphadenopathy, no carotid bruit, JVD Heart: negative: RRR, no murmur, no gallops, no rubs, normal peripheral pulses, irregular, diminshed peripheral pulses, murmur present, II/IV, III/IV Respiratory: negative: CTAB, no wheezes, no rales, no ronchi, normal chest expansion, no tachypnea, normal percussion, rales, rhonchi, tachypneic, wheezes Gastrointestinal: negative: soft, non-tender, non-distended, normal bowel sounds , no palpable masses, no hepatomegaly, no splenomegaly, no bruit, no guarding, no rigidity, tender to palpation, distended, diminished bowl sounds, voluntary guarding Hosp A/P (1) NSTEMI (non-ST elevated myocardial infarction) Code(s): I21.4 - NON-ST ELEVATION (NSTEMI) MYOCARDIAL INFARCTION Status: Acute (2) CAD (coronary artery disease) Code(s): I25.10 - ATHSCL HEART DISEASE OF [place] CORONARY ARTERY W/O ANG PCTRS Status: Acute (3) Diabetes Code(s): E11.9 - TYPE 2 DIABETES MELLITUS WITHOUT COMPLICATIONS Status: Acute - Plan 03/28 s/p cardiac cath will need CABG per report. cv surgery to see pt. pt up in bed no complains. will undergo CABG in am 03/30 s/p cabg, pt has been extubated. will follow along. 04/01 s/p cabg, pt doing well. will monitor creatinine. blood sugars stable.
[2019-04-01 15:27] LABS: Anion Gap 11 mmol/L (10-20); BUN (Urea Nitrogen) 30 mg/dL (8.4-25.7); Calc. Creatinine Clearance 47 mL/min (70-130); Calcium 8.9 mg/dL (7.8-10.44); Carbon Dioxide 23 mmol/L (23-31); Chloride 109 mmol/L (98-107); Estimated GFR-MDRD 44; Glucose 190 mg/dL (83-110); Potassium 3.7 mmol/L (3.5-5.1); Sodium 139 mmol/L (136-145)
[2019-04-01] MEDS: Carvedilol 6.25 MG TAB PO SCH (17:10)
[2019-04-01] MEDS: Latanoprost 0.005% Ophth Soln 2.5 ml Bottle EA EYE SCH (21:17)
[2019-04-01] MEDS: Atorvastatin Calcium 20 MG TAB PO SCH (21:17)
[2019-04-01] MEDS: Gabapentin 300 MG CAP PO SCH (21:17)
[2019-04-01] MEDS: Zolpidem Tartrate 5 MG TAB PO PRN (21:17)
[2019-04-01] MEDS: Mirtazapine 15 MG TAB PO SCH (21:17)
[2019-04-02 06:50] LABS: #Lymphocytes 1.2 thou/uL (1.20-3.40); #Monocytes 0.9 thou/uL (0.11-0.59); #Neutrophils 7.6 thou/uL (1.40-6.50); %Basophils 0.1 % (0.0-1.0); %Eosinophils 0.5 % (0.0-10.0); %Lymphocytes 12.3 % (21.0-51.0); %Neutrophils 78.1 % (42.0-75.0); Hemoglobin 10.1 g/dL (14.0-18.0); Mean Corpuscular HGB CONC 33.6 g/dL (32.0-36.0); Mean Corpuscular Hemoglobin 31.9 pg (27.0-31.0); Mean Corpuscular Volume 94.9 fL (78.0-98.0); Mean Platelet Volume 9.7 fL (7.4-10.4); Platelet Count 93 thou/uL (130-400); RBC Distribution Width 12.5 % (11.5-14.5); Red Blood Cell (RBC) Count 3.17 mill/uL (4.70-6.10); White Blood Cell (WBC) Count 9.7 thou/uL (4.8-10.8)
[2019-04-02 07:15] LABS: Anion Gap 14 mmol/L (10-20); BUN (Urea Nitrogen) 26 mg/dL (8.4-25.7); Calc. Creatinine Clearance 59 mL/min (70-130); Calcium 8.6 mg/dL (7.8-10.44); Carbon Dioxide 21 mmol/L (23-31); Chloride 111 mmol/L (98-107); Estimated GFR-MDRD 58; Glucose 132 mg/dL (83-110); Potassium 3.7 mmol/L (3.5-5.1); Sodium 142 mmol/L (136-145)
--- NOTE | 2019-04-02 09:11 | RAD ---
CHEST 1 VIEW: COMPARISON: 04/01/2019. HISTORY: Status post CABG. FINDINGS: Stable sternotomy wires. Stable cardiac silhouette. Persistent opacification of the left lung base. There is no pneumothorax. Stable right-sided central venous catheter. IMPRESSION: No significant interval change. Findings compatible with recent open heart surgery. POS: RAFAEL
[2019-04-02] MEDS: Carvedilol 6.25 MG TAB PO SCH ×2 (09:18→16:27)
[2019-04-02] MEDS: Aspirin 325 mg Enteric Coated Tablet PO SCH (09:18)
[2019-04-02] MEDS: Bupropion 150 MG SR TAB PO SCH (09:23)
[2019-04-02] MEDS: Sodium Chloride 0.9% 1,000 ML IV SCH (09:50)
--- NOTE | 2019-04-02 12:16 | PDOC.CTH ---
Cardiology Progress Note - Subjective Patient with c/o SOB. Minimal pain. - Objective Vital Signs Temp Pulse Pulse Pulse Resp BP BP 04/02/19 12:00 97.5 F L 81 17 04/02/19 09:25 81 71 148/67 H 04/02/19 09:18 132/75 04/02/19 07:52 98.8 F 95 18 04/02/19 04:00 99.8 F H 84 20 BP BP Pulse Ox Pulse Ox Pulse Ox 04/02/19 12:00 138/67 96 04/02/19 09:25 151/67 H 96 98 04/02/19 09:18 04/02/19 07:52 167/74 H 97 04/02/19 04:00 125/75 97 Weight 180 lb 11.2 oz 04/01/19 04/02/19 04/03/19 06:59 06:59 06:59 Intake Total 1626 927 240 Output Total 2330 1315 550 Balance -128 -967 -525 - Physical Examination General/Neuro: alert & oriented x3 Neck: no JVD present Lungs: other: (decreased at bases) Heart: RRR Abdomen: soft Extremities: other: (no edema) - Labs Result Diagrams: 04/02/19 05:22 04/02/19 05:22 Troponin/CKMB CK-MB (CK-2) 0.8 ng/mL (0-6.6) 03/27/19 10:21 Troponin I 0.038 ng/mL (< 0.028) H 03/27/19 16:24 - Assessment/Plan 1. NSTEMI 2. CAD s/p CABG 3. HTN 4. DULCE Add Norvasc. Continue Coreg and lasix. Pt seen and examined. Agree with above assessment. IS and PT
[2019-04-02] MEDS ORDERED: Amlodipine 5 MG TAB PO SCH (12:30)
--- NOTE | 2019-04-02 12:31 | PRG ---
DATE OF SERVICE: 04/02/2019 SUBJECTIVE: A 78-year-old gentleman, status post CABG, doing better, still short of breath. OBJECTIVE: VITAL SIGNS: Temperature is 97, pulse 80, respiratory rate 17, saturations are 98% on room air, and blood pressure . CHEST: No wheezing or crackles. CARDIAC: Normal S1 and S2. No gallops. ABDOMEN: No masses. ASSESSMENT: Status post coronary artery bypass grafting, baseline respiratory failure with left pleural effusion, and diabetes. PLAN: Continue supportive care and PT. Job ID: [id number]
[2019-04-02] MEDS ORDERED: Furosemide 40 MG TAB PO SCH (14:00)
--- NOTE | 2019-04-02 15:02 | PDOC.HOSPP ---
- Subjective Encounter Date: 04/02/19 Encounter Time: 10:15 Subjective: pt up in bed asleep easily arousable . - Objective Vital Signs & Weight: Vital Signs (12 hours) Temp Pulse Pulse Pulse Resp BP BP 04/02/19 13:27 81 04/02/19 12:00 97.5 F L 81 17 04/02/19 09:25 81 71 148/67 H 04/02/19 09:18 132/75 04/02/19 07:52 98.8 F 95 18 04/02/19 04:00 99.8 F H 84 20 BP BP Pulse Ox Pulse Ox Pulse Ox 04/02/19 13:27 04/02/19 12:00 138/67 96 04/02/19 09:25 151/67 H 96 98 04/02/19 09:18 04/02/19 07:52 167/74 H 97 04/02/19 04:00 125/75 97 Weight Weight 180 lb 11.2 oz Most Recent Monitor Data Heart Rate from ECG 78 NIBP 142/76 NIBP BP-Mean 98 Respiration from ECG 28 SpO2 92 I&O: 04/01/19 04/02/19 04/03/19 06:59 06:59 06:59 Intake Total 1626 927 240 Output Total 2330 7147 550 [facility] -349 -696 -792 Result Diagrams: 04/02/19 05:22 04/02/19 05:22 Additional Labs: Accuchecks 04/02/19 04/02/19 04/01/19 05:35 01:08 16:48 POC Glucose 149 H 127 H 147 H 03/30/19 09:08 POC Glucose 150 H ROS - Review of Systems Cardiovascular: denies: chest pain, palpitations, orthopnea, paroxysmal noc. dyspnea, edema, light headedness, other Gastrointestinal: denies: nausea, vomitting, abdominal pain, diarrhea, constipation, melena, hematochezia, other Genitourinary: denies: dysuria, frequency, incontinence, hematuria, retention, other - Medication Medications: Active Medications Generic Name Dose Route Start Last Admin Trade Name Freq PRN Reason Stop Dose Admin Hydrocodone Bitart/Acetaminophen 1 tab 03/30/19 12:42 03/31/19 09:20 [place] 5/325 PO 1 tab Q4H PRN Administration Moderate Pain (4-6) Hydrocodone Bitart/Acetaminophen 2 tab 03/30/19 12:42 03/31/19 20:59 [place] 5/325 PO 2 tab Q4H PRN Administration Severe Pain (7-10) Aspirin 325 mg 04/01/19 09:00 04/02/19 09:18 Ecotrin PO 325 mg DAILY SAILAJA Administration Atorvastatin Calcium 20 mg 03/31/19 21:00 04/01/19 21:17 Lipitor PO 20 mg HS SAILAJA Administration Bupropion HCl 150 mg 04/01/19 09:00 04/02/19 09:23 Wellbutrin Sr PO 150 mg DAILY SAILAJA Administration Carvedilol 6.25 mg 04/01/19 17:00 04/02/19 09:18 Coreg PO 6.25 mg BID-WM SAILAJA Administration Furosemide 40 mg 04/02/19 14:00 04/02/19 13:28 Lasix PO 40 mg 0900,1400 SAILAJA Administration Gabapentin 300 mg 03/31/19 21:00 04/01/19 21:17 Neurontin PO 300 mg HS SAILAJA Administration Insulin Human Regular 0 units 03/31/19 07:01 04/01/19 12:21 Humulin R SC 6 unit .AGGRESSIVE SLIDING PRN Administration Aggressive Sliding Scale Latanoprost 1 drop 03/31/19 21:00 04/01/19 21:17 Xalatan 0.005% Ophth Soln EA EYE 1 drop HS SAILAJA Administration Mirtazapine 15 mg 03/31/19 21:00 04/01/19 21:17 Remeron PO 15 mg HS SAILAJA Administration Pantoprazole Sodium 40 mg 04/01/19 09:00 04/02/19 09:18 Protonix PO 40 mg DAILY SAILAJA Administration Sodium Chloride 10 ml 03/31/19 21:00 04/02/19 09:19 Flush - Normal Saline IVF 10 ml Q12HR SAILAJA Administration - Exam Heart: negative: RRR, no murmur, no gallops, no rubs, normal peripheral pulses, irregular, diminshed peripheral pulses, murmur present, II/IV, III/IV Respiratory: negative: CTAB, no wheezes, no rales, no ronchi, normal chest expansion, no tachypnea, normal percussion, rales, rhonchi, tachypneic, wheezes Gastrointestinal: negative: soft, non-tender, non-distended, normal bowel sounds , no palpable masses, no hepatomegaly, no splenomegaly, no bruit, no guarding, no rigidity, tender to palpation, distended, diminished bowl sounds, voluntary guarding Hosp A/P (1) NSTEMI (non-ST elevated myocardial infarction) Code(s): I21.4 - NON-ST ELEVATION (NSTEMI) MYOCARDIAL INFARCTION Status: Acute (2) CAD (coronary artery disease) Code(s): I25.10 - ATHSCL HEART DISEASE OF [place] CORONARY ARTERY W/O ANG PCTRS Status: Acute (3) Diabetes Code(s): E11.9 - TYPE 2 DIABETES MELLITUS WITHOUT COMPLICATIONS Status: Acute - Plan 03/28 s/p cardiac cath will need CABG per report. cv surgery to see pt. pt up in bed no complains. will undergo CABG in am 03/30 s/p cabg, pt has been extubated. will follow along. 04/01 s/p cabg, pt doing well. will monitor creatinine. blood sugars stable. 04/02 pt encouraged to get up more often with assistance. He also was encouraged to use his IS. pt's olivier has improved.
--- NOTE | 2019-04-02 15:19 | EKG ---
Test Reason : Blood Pressure : / mmHG Vent. Rate : 065 BPM Atrial Rate : 065 BPM P-R Int : 166 ms QRS Dur : 154 ms QT Int : 458 ms P-R-T Axes : 023 -31 132 degrees QTc Int : 476 ms Normal sinus rhythm Left axis deviation Left bundle branch block Abnormal ECG #2 Confirmed by JOSEF ARREDONDO DO ([id number]), book editor ELSY REARDON ([id number]) on 04/02/2019 3:18:51 PM Referred By: Confirmed By:JOSEF ARREDONDO DO
--- NOTE | 2019-04-02 15:19 | EKG ---
Test Reason : CHEST PAIN Blood Pressure : / mmHG Vent. Rate : 067 BPM Atrial Rate : 067 BPM P-R Int : 164 ms QRS Dur : 150 ms QT Int : 432 ms P-R-T Axes : 028 -10 144 degrees QTc Int : 456 ms Normal sinus rhythm Left bundle branch block Abnormal ECG Confirmed by JOSEF ARREDONDO DO ([id number]), newspaper editor managing ELSY REARDON ([id number]) on 04/02/2019 3:18:41 PM Referred By: Confirmed By:JOSEF ARREDONDO DO
[2019-04-02] MEDS: Potassium Chloride 10 MEQ TAB PO SCH (16:27)
[2019-04-02] MEDS: Insulin Regular 300 UNITS/3 ML VIAL SC PRN (18:20)
[2019-04-02] MEDS: Gabapentin 300 MG CAP PO SCH (20:38)
[2019-04-02] MEDS: Latanoprost 0.005% Ophth Soln 2.5 ml Bottle EA EYE SCH (20:38)
[2019-04-02] MEDS: Mirtazapine 15 MG TAB PO SCH (20:38)
[2019-04-02] MEDS: Atorvastatin Calcium 20 MG TAB PO SCH (20:38)
[2019-04-03 04:51] LABS: Anion Gap 11 mmol/L (10-20); BUN (Urea Nitrogen) 23 mg/dL (8.4-25.7); Calc. Creatinine Clearance 55 mL/min (70-130); Calcium 8.4 mg/dL (7.8-10.44); Carbon Dioxide 24 mmol/L (23-31); Chloride 111 mmol/L (98-107); Estimated GFR-MDRD 54; Glucose 161 mg/dL (83-110); Potassium 3.5 mmol/L (3.5-5.1); Sodium 142 mmol/L (136-145)
[2019-04-03] MEDS ORDERED: Furosemide 40 MG TAB PO SCH (07:30)
[2019-04-03] MEDS ORDERED: Potassium Chloride 10 MEQ TAB PO SCH (08:00)
[2019-04-03] MEDS ORDERED: traMADol HCl 50 MG TAB PO PRN (08:17)
[2019-04-03] MEDS ORDERED: Ibuprofen 600 MG TAB PO PRN (08:17)
[2019-04-03] MEDS ORDERED: Metolazone 5 MG TAB PO SCH (09:30)
[2019-04-03] MEDS: Potassium Chloride 10 MEQ TAB PO SCH ×2 (09:39→16:52)
[2019-04-03] MEDS: Carvedilol 6.25 MG TAB PO SCH ×2 (09:39→16:52)
[2019-04-03] MEDS: Amlodipine 5 MG TAB PO SCH (09:39)
[2019-04-03] MEDS: Aspirin 325 mg Enteric Coated Tablet PO SCH (09:40)
[2019-04-03] MEDS: Bupropion 150 MG SR TAB PO SCH (09:48)
--- NOTE | 2019-04-03 10:45 | PRG ---
DATE OF SERVICE: 04/03/2019 SUBJECTIVE: This morning, he is still short of breath. He is weak as per the family. No cough. OBJECTIVE: VITAL SIGNS: Saturations are 95% on 2 L, respirations 15, temperature 98, and blood pressure 120/64. CHEST: Decreased breath sounds. No wheezing. CARDIAC: Normal S1 and S2. No gallops. ABDOMEN: No masses. IMPRESSION: 1. Respiratory failure. 2. Post coronary artery bypass graft. 3. Azotemia. 4. Former smoker. 5. Chronic obstructive pulmonary disease. PLAN: Continue PT, supportive care. Disposition as per Cardiology. Job ID: [id number]
--- NOTE | 2019-04-03 11:04 | PDOC.CTH ---
Cardiology Progress Note - Subjective Patient overall improved today. still with dietary questions. Patient says breathing stable. - Objective Vital Signs Temp Pulse Resp BP BP BP Pulse Ox 04/03/19 09:39 82 132/75 04/03/19 07:05 98.3 F 82 15 129/64 95 04/03/19 04:00 97.8 F 81 17 143/67 H 96 Weight 179 lb 11.2 oz 04/02/19 04/03/19 04/04/19 06:59 06:59 06:59 Intake Total 927 540 Output Total 1315 1250 Balance -388 -710 - Physical Examination General/Neuro: alert & oriented x3 Neck: no JVD present Lungs: CTA Heart: RRR Abdomen: NT/ND - Telemetry Telemetry Rhythm: SR - Labs Result Diagrams: 04/02/19 05:22 04/03/19 04:10 Troponin/CKMB CK-MB (CK-2) 0.8 ng/mL (0-6.6) 03/27/19 10:21 Troponin I 0.038 ng/mL (< 0.028) H 03/27/19 16:24 - Assessment/Plan 2. CAD s/p CABG 3. HTN 4. DULCE Continue working with cardiac rehab. Weight up 10lbs from admission. Will give zaroxolyn x 1 dose. Dietary counseling.
[2019-04-03] MEDS: Insulin Regular 300 UNITS/3 ML VIAL SC PRN ×2 (13:52→22:53)
--- NOTE | 2019-04-03 15:48 | PDOC.HOSPP ---
- Subjective Encounter Date: 04/03/19 Encounter Time: 11:00 Subjective: pt up in bed complains of sob - Objective Vital Signs & Weight: Vital Signs (12 hours) Temp Pulse Pulse Pulse Resp BP BP 04/03/19 12:00 97.4 F L 72 18 04/03/19 09:39 82 132/75 04/03/19 08:56 81 75 155/69 H 04/03/19 07:05 98.3 F 82 15 04/03/19 04:00 97.8 F 81 17 BP BP BP BP Pulse Ox Pulse Ox Pulse Ox 04/03/19 12:00 130/63 97 04/03/19 09:39 04/03/19 08:56 131/63 96 96 04/03/19 07:05 129/64 95 04/03/19 04:00 143/67 H 96 Weight Weight 179 lb 11.2 oz Most Recent Monitor Data Heart Rate from ECG 78 NIBP 142/76 NIBP BP-Mean 98 Respiration from ECG 28 SpO2 92 I&O: 04/02/19 04/03/19 04/04/19 06:59 06:59 06:59 Intake Total 927 540 Output Total 1315 1250 Balance -388 -710 Result Diagrams: 04/02/19 05:22 04/03/19 04:10 Additional Labs: Accuchecks 04/03/19 04/03/19 04/02/19 11:08 05:37 21:01 POC Glucose 219 H 145 H 182 H 04/02/19 16:46 POC Glucose 189 H ROS - Review of Systems Respiratory: denies: cough, dry, shortness of breath, hemoptysis, SOB with excertion, pleuritic pain, sputum, wheezing, other Cardiovascular: denies: chest pain, palpitations, orthopnea, paroxysmal noc. dyspnea, edema, light headedness, other Gastrointestinal: denies: nausea, vomitting, abdominal pain, diarrhea, constipation, melena, hematochezia, other - Medication Medications: Active Medications Generic Name Dose Route Start Last Admin Trade Name Freq PRN Reason Stop Dose Admin Amlodipine Besylate 5 mg 04/03/19 09:00 04/03/19 09:39 Norvasc PO 5 mg DAILY SAILAJA Administration Aspirin 325 mg 04/01/19 09:00 04/03/19 09:40 Ecotrin PO 325 mg DAILY SAILAJA Administration Atorvastatin Calcium 20 mg 03/31/19 21:00 04/02/19 20:38 Lipitor PO 20 mg HS SAILAJA Administration Bupropion HCl 150 mg 04/01/19 09:00 04/03/19 09:48 Wellbutrin Sr PO 150 mg DAILY SAILAJA Administration Carvedilol 6.25 mg 04/01/19 17:00 04/03/19 09:39 Coreg PO 6.25 mg BID-WM SAILAJA Administration Insulin Human Regular 0 units 03/31/19 07:01 04/03/19 13:52 Humulin R SC 6 unit .AGGRESSIVE SLIDING PRN Administration Aggressive Sliding Scale Latanoprost 1 drop 03/31/19 21:00 04/02/19 20:38 Xalatan 0.005% Ophth Soln EA EYE 1 drop HS SAILAJA Administration Pantoprazole Sodium 40 mg 04/01/19 09:00 04/03/19 09:40 Protonix PO 40 mg DAILY SAILAJA Administration Potassium Chloride 10 meq 04/02/19 17:00 04/03/19 09:39 Klor-Con 10 PO 10 meq BID-WM SAILAJA Administration Sodium Chloride 10 ml 03/31/19 21:00 04/03/19 09:40 Flush - Normal Saline IVF 10 ml Q12HR SAILAJA Administration - Exam Neck: negative: supple, symmetric, no JVD, no thyromegaly, no lymphadenopathy, no carotid bruit, JVD Heart: negative: RRR, no murmur, no gallops, no rubs, normal peripheral pulses, irregular, diminshed peripheral pulses, murmur present, II/IV, III/IV Hosp A/P (1) NSTEMI (non-ST elevated myocardial infarction) Code(s): I21.4 - NON-ST ELEVATION (NSTEMI) MYOCARDIAL INFARCTION Status: Acute (2) CAD (coronary artery disease) Code(s): I25.10 - ATHSCL HEART DISEASE OF [place] CORONARY ARTERY W/O ANG PCTRS Status: Acute (3) Diabetes Code(s): E11.9 - TYPE 2 DIABETES MELLITUS WITHOUT COMPLICATIONS Status: Acute - Plan 03/28 s/p cardiac cath will need CABG per report. cv surgery to see pt. pt up in bed no complains. will undergo CABG in am 03/30 s/p cabg, pt has been extubated. will follow along. 04/01 s/p cabg, pt doing well. will monitor creatinine. blood sugars stable. 04/02 pt encouraged to get up more often with assistance. He also was encouraged to use his IS. pt's olivier has improved. 04/03 will continue lasix for now. He has been encouraged to ambulate more. bp stable.
[2019-04-03] MEDS: Atorvastatin Calcium 20 MG TAB PO SCH (22:51)
[2019-04-03] MEDS: Latanoprost 0.005% Ophth Soln 2.5 ml Bottle EA EYE SCH (22:51)
[2019-04-04 05:19] LABS: Anion Gap 11 mmol/L (10-20); BUN (Urea Nitrogen) 20 mg/dL (8.4-25.7); Calc. Creatinine Clearance 60 mL/min (70-130); Calcium 8.6 mg/dL (7.8-10.44); Carbon Dioxide 23 mmol/L (23-31); Chloride 109 mmol/L (98-107); Estimated GFR-MDRD 59; Glucose 135 mg/dL (83-110); Potassium 3.6 mmol/L (3.5-5.1); Sodium 139 mmol/L (136-145)
[2019-04-04] MEDS: Amlodipine 5 MG TAB PO SCH (08:45)
[2019-04-04] MEDS: Aspirin 325 mg Enteric Coated Tablet PO SCH (08:46)
[2019-04-04] MEDS: Furosemide 40 MG TAB PO SCH (08:46)
[2019-04-04] MEDS: Potassium Chloride 10 MEQ TAB PO SCH ×2 (08:46→18:01)
[2019-04-04] MEDS: Carvedilol 6.25 MG TAB PO SCH ×2 (08:46→18:04)
[2019-04-04] MEDS ORDERED: Insulin Glargine 10 UNITS in Pre-Filled Syringe 1 EACH SC SCH (09:00)
[2019-04-04] MEDS: Bupropion 150 MG SR TAB PO SCH (09:02)
[2019-04-04] MEDS: Insulin Regular 300 UNITS/3 ML VIAL SC PRN ×2 (11:56→18:02)
--- NOTE | 2019-04-04 19:33 | PDOC.HOSPP ---
- Subjective Encounter Date: 04/04/19 Encounter Time: 10:30 Subjective: pt up in bed still has some sob but feels better than yest - Objective Vital Signs & Weight: Vital Signs (12 hours) Temp Pulse Pulse Pulse Resp BP BP 04/04/19 18:04 125/59 L 04/04/19 16:00 97.9 F 74 18 04/04/19 13:37 74 74 127/63 04/04/19 12:00 99.0 F 76 18 04/04/19 09:30 79 76 137/66 04/04/19 08:46 132/75 04/04/19 08:45 77 133/65 04/04/19 08:00 100.0 F H 78 18 BP BP BP Pulse Ox Pulse Ox Pulse Ox 04/04/19 18:04 04/04/19 16:00 125/59 L 93 L 04/04/19 13:37 144/68 H 95 96 04/04/19 12:00 110/59 L 95 04/04/19 09:30 134/63 93 L 94 L 04/04/19 08:46 04/04/19 08:45 04/04/19 08:00 133/65 94 L Weight Weight 176 lb 11.2 oz Most Recent Monitor Data Heart Rate from ECG 78 NIBP 142/76 NIBP BP-Mean 98 Respiration from ECG 28 SpO2 92 I&O: 04/03/19 04/04/19 04/05/19 06:59 06:59 06:59 Intake Total 540 480 Output Total 1250 800 Balance -710 -320 Result Diagrams: 04/02/19 05:22 04/04/19 04:49 Additional Labs: Accuchecks 04/04/19 04/04/19 04/04/19 16:41 11:02 05:34 POC Glucose 204 H 185 H 126 H 04/03/19 21:07 POC Glucose 174 H ROS - Review of Systems Respiratory: reports: shortness of breath Cardiovascular: denies: chest pain, palpitations, orthopnea, paroxysmal noc. dyspnea, edema, light headedness, other Gastrointestinal: denies: nausea, vomitting, abdominal pain, diarrhea, constipation, melena, hematochezia, other - Medication Medications: Active Medications Generic Name Dose Route Start Last Admin Trade Name Freq PRN Reason Stop Dose Admin Amlodipine Besylate 5 mg 04/03/19 09:00 08/26/19 08:45 Norvasc PO 5 mg DAILY SAILAJA Administration Aspirin 325 mg 04/01/19 09:00 04/04/19 08:46 Ecotrin PO 325 mg DAILY SAILAJA Administration Atorvastatin Calcium 20 mg 03/31/19 21:00 04/03/19 22:51 Lipitor PO 20 mg HS SAILAJA Administration Bupropion HCl 150 mg 04/01/19 09:00 04/04/19 09:02 Wellbutrin Sr PO 150 mg DAILY SAILAJA Administration Carvedilol 6.25 mg 04/01/19 17:00 04/04/19 18:04 Coreg PO 6.25 mg BID-WM SAILAJA Administration Furosemide 40 mg 04/04/19 07:30 04/04/19 08:46 Lasix PO 40 mg DAILY-AC SAILAJA Administration Insulin Glargine 10 units/ 0.1 mls @ 0 mls/hr 04/04/19 09:00 04/04/19 08:47 Miscellaneous Medication SC 0.1 mls QAM SAILAJA Administration Ibuprofen 600 mg 04/03/19 08:17 04/04/19 08:45 Motrin PO 600 mg Q6H PRN Administration Mild Pain (1-3) Insulin Human Regular 0 units 03/31/19 07:01 04/04/19 18:02 Humulin R SC 6 unit .AGGRESSIVE SLIDING PRN Administration Aggressive Sliding Scale Latanoprost 1 drop 03/31/19 21:00 04/03/19 22:51 Xalatan 0.005% Ophth Soln EA EYE 1 drop HS SAILAJA Administration Pantoprazole Sodium 40 mg 04/01/19 09:00 04/04/19 08:46 Protonix PO 40 mg DAILY SAILAJA Administration Potassium Chloride 10 meq 04/02/19 17:00 04/04/19 18:01 Klor-Con 10 PO 10 meq BID-WM SAILAJA Administration Sodium Chloride 10 ml 03/31/19 21:00 04/04/19 08:47 Flush - Normal Saline IVF 10 ml Q12HR SAILAJA Administration - Exam Neck: negative: supple, symmetric, no JVD, no thyromegaly, no lymphadenopathy, no carotid bruit, JVD Heart: negative: RRR, no murmur, no gallops, no rubs, normal peripheral pulses, irregular, diminshed peripheral pulses, murmur present, II/IV, III/IV Respiratory - other findings: mild crackles to bases Hosp A/P (1) NSTEMI (non-ST elevated myocardial infarction) Code(s): I21.4 - NON-ST ELEVATION (NSTEMI) MYOCARDIAL INFARCTION Status: Acute (2) CAD (coronary artery disease) Code(s): I25.10 - ATHSCL HEART DISEASE OF [place] CORONARY ARTERY W/O ANG PCTRS Status: Acute (3) Diabetes Code(s): E11.9 - TYPE 2 DIABETES MELLITUS WITHOUT COMPLICATIONS Status: Acute - Plan 03/28 s/p cardiac cath will need CABG per report. cv surgery to see pt. pt up in bed no complains. will undergo CABG in am 03/30 s/p cabg, pt has been extubated. will follow along. 04/01 s/p cabg, pt doing well. will monitor creatinine. blood sugars stable. 04/02 pt encouraged to get up more often with assistance. He also was encouraged to use his IS. pt's olivier has improved. 04/03 will continue lasix for now. He has been encouraged to ambulate more. bp stable. 04/04 pt received zaroxyln. he feels well but still has some sob. He has gained weight since his admission. discharge when ok with CV surgery.
[2019-04-04] MEDS: Latanoprost 0.005% Ophth Soln 2.5 ml Bottle EA EYE SCH (20:54)
[2019-04-04] MEDS: Atorvastatin Calcium 20 MG TAB PO SCH (20:55)
[2019-04-04] MEDS: Mirtazapine 15 MG TAB PO SCH (21:14)
[2019-04-05 05:24] LABS: Anion Gap 13 mmol/L (10-20); BUN (Urea Nitrogen) 28 mg/dL (8.4-25.7); Calc. Creatinine Clearance 46 mL/min (70-130); Calcium 8.7 mg/dL (7.8-10.44); Carbon Dioxide 23 mmol/L (23-31); Chloride 108 mmol/L (98-107); Estimated GFR-MDRD 45; Glucose 178 mg/dL (83-110); Potassium 3.6 mmol/L (3.5-5.1); Sodium 140 mmol/L (136-145)
[2019-04-05] MEDS ORDERED: Sodium Chloride 0.9% 0 ML ONE (08:44)
[2019-04-05] MEDS: Insulin Glargine 20 UNITS in Pre-Filled Syringe 1 EACH SC SCH (09:36)
[2019-04-05] MEDS: Insulin Regular 300 UNITS/3 ML VIAL SC PRN ×2 (09:38→18:19)
[2019-04-05] MEDS: Potassium Chloride 10 MEQ TAB PO SCH ×2 (09:41→18:17)
[2019-04-05] MEDS: Carvedilol 6.25 MG TAB PO SCH ×2 (09:41→18:17)
[2019-04-05] MEDS: Amlodipine 5 MG TAB PO SCH (09:42)
[2019-04-05] MEDS: Aspirin 325 mg Enteric Coated Tablet PO SCH (09:42)
[2019-04-05] MEDS: Bisacodyl 5 MG TAB PO PRN (09:42)
[2019-04-05] MEDS: Tamsulosin HCl 0.4 MG CAP PO SCH (09:42)
[2019-04-05] MEDS: Bupropion 150 MG SR TAB PO SCH (09:45)
[2019-04-05] MEDS: Furosemide 40 MG TAB PO SCH (09:46)
--- NOTE | 2019-04-05 10:39 | PDOC.HOSPP ---
- Subjective Encounter Date: 04/05/19 Encounter Time: 10:37 Subjective: Mr. 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 He does not have any complaints. He was seen up walking with the aid of a walker, with his family. - Objective Vital Signs & Weight: Vital Signs (12 hours) Temp Pulse Resp BP BP BP Pulse Ox 04/05/19 09:42 62 124/58 L 04/05/19 09:41 124/58 L 04/05/19 08:00 97.6 F 62 14 124/58 L 95 04/05/19 04:00 97.9 F 106 H 20 121/56 L 93 L 04/04/19 23:55 60 129/78 Weight Weight 175 lb 1.6 oz Most Recent Monitor Data Heart Rate from ECG 78 NIBP 142/76 NIBP BP-Mean 98 Respiration from ECG 28 SpO2 92 I&O: 04/04/19 04/05/19 04/06/19 06:59 06:59 06:59 Intake Total 780 Output Total 1050 Balance -270 Result Diagrams: 04/02/19 05:22 04/05/19 04:55 Additional Labs: Accuchecks 04/05/19 04/04/19 04/04/19 05:28 20:35 16:41 POC Glucose 163 H 124 H 204 H 04/04/19 11:02 POC Glucose 185 H Hospitalist ROS - Medication Medications: Active Medications Generic Name Dose Route Start Last Admin Trade Name Freq PRN Reason Stop Dose Admin Amlodipine Besylate 5 mg 04/03/19 09:00 04/05/19 09:42 Norvasc PO 5 mg DAILY SAILAJA Administration Aspirin 325 mg 04/01/19 09:00 04/05/19 09:42 Ecotrin PO 325 mg DAILY SAILAJA Administration Atorvastatin Calcium 20 mg 03/31/19 21:00 04/04/19 20:55 Lipitor PO 20 mg HS SAILAJA Administration Bisacodyl 10 mg 03/31/19 11:48 04/05/19 09:42 Dulcolax PO 10 mg Q12H PRN Administration Constipation Bupropion HCl 150 mg 04/01/19 09:00 04/05/19 09:45 Wellbutrin Sr PO 150 mg DAILY SAILAJA Administration Carvedilol 6.25 mg 04/01/19 17:00 04/05/19 09:41 Coreg PO 6.25 mg BID-WM SAILAJA Administration Furosemide 40 mg 04/04/19 07:30 04/05/19 09:46 Lasix PO 40 mg DAILY-AC SAILAJA Administration Insulin Glargine 20 units/ 0.2 mls @ 0 mls/hr 04/05/19 09:00 04/05/19 09:36 Miscellaneous Medication SC 0.2 mls QAM SAILAJA Administration Ibuprofen 600 mg 04/03/19 08:17 04/04/19 08:45 Motrin PO 600 mg Q6H PRN Administration Mild Pain (1-3) Insulin Human Regular 0 units 03/31/19 07:01 04/05/19 09:38 Humulin R SC 3 unit .AGGRESSIVE SLIDING PRN Administration Aggressive Sliding Scale Latanoprost 1 drop 03/31/19 21:00 04/04/19 20:54 Xalatan 0.005% Ophth Soln EA EYE 1 drop HS SAILAJA Administration Mirtazapine 15 mg 04/04/19 21:00 04/04/19 21:14 Remeron PO 15 mg HS SAILAJA Administration Pantoprazole Sodium 40 mg 04/01/19 09:00 04/05/19 09:42 Protonix PO 40 mg DAILY SAILAJA Administration Potassium Chloride 10 meq 04/02/19 17:00 04/05/19 09:41 Klor-Con 10 PO 10 meq BID-WM SAILAJA Administration Sodium Chloride 10 ml 03/31/19 21:00 04/05/19 09:46 Flush - Normal Saline IVF 10 ml Q12HR SAILAJA Administration Tamsulosin HCl 0.4 mg 04/05/19 09:00 04/05/19 09:42 Flomax PO 0.4 mg DAILY SAILAJA Administration - Exam General Appearance: NAD Neck: supple, symmetric, no JVD, no thyromegaly Heart: RRR, no murmur, no gallops, no rubs Respiratory: CTAB (Decreased breath sounds at the right base, scattered rhonchi) , no wheezes, no rales Gastrointestinal: soft, non-tender, normal bowel sounds, no palpable masses, no guarding, distended (+ gaseous distention, and tempanic to percussion) Extremities: no cyanosis, no clubbing, 1+ LE edema (bilateral lower extremity edema in both legs, no erythema or warmth) Psychiatric: A&O x 3 Hosp A/P (1) NSTEMI (non-ST elevated myocardial infarction) Code(s): I21.4 - NON-ST ELEVATION (NSTEMI) MYOCARDIAL INFARCTION Status: Acute (2) S/P CABG x 5 Code(s): Z95.1 - PRESENCE OF AORTOCORONARY BYPASS GRAFT Status: Acute (3) Urinary retention Code(s): R33.9 - RETENTION OF URINE, UNSPECIFIED Status: Acute (4) Hypertension Code(s): I10 - ESSENTIAL (PRIMARY) HYPERTENSION Status: Chronic (5) CAD (coronary artery disease) Code(s): I25.10 - ATHSCL HEART DISEASE OF [place] CORONARY ARTERY W/O ANG PCTRS Status: Chronic (6) Diabetes mellitus type 2 in nonobese Code(s): E11.9 - TYPE 2 DIABETES MELLITUS WITHOUT COMPLICATIONS Status: Chronic (7) Chronic kidney disease, stage 3 Code(s): N18.3 - CHRONIC KIDNEY DISEASE, STAGE 3 (MODERATE) Status: Chronic - Plan * NSTEMI- s/p 5 vessel CABG- clinically stable * Urinary retention- likely due to pelvic muscle relaxation from recent surgery , constipation, and he may have some BPH- will place a aguilar, and consult Urology * DM- blood glucose is stable * HTN- blood pressure is stable * Patient will go home after discharge to live with family locally, and not Rehab
[2019-04-05] MEDS: Latanoprost 0.005% Ophth Soln 2.5 ml Bottle EA EYE SCH (21:25)
[2019-04-05] MEDS: Atorvastatin Calcium 20 MG TAB PO SCH (21:25)
[2019-04-05] MEDS: Amiodarone 200 MG TAB PO SCH (21:25)
[2019-04-05] MEDS: Mirtazapine 15 MG TAB PO SCH (21:25)
[2019-04-05] MEDS ORDERED: Labetalol HCl 100 MG/20 ML VIAL ONE (21:35)
[2019-04-06 05:53] LABS: Anion Gap 14 mmol/L (10-20); BUN (Urea Nitrogen) 31 mg/dL (8.4-25.7); Calc. Creatinine Clearance 45 mL/min (70-130); Calcium 8.8 mg/dL (7.8-10.44); Carbon Dioxide 23 mmol/L (23-31); Chloride 107 mmol/L (98-107); Estimated GFR-MDRD 45; Glucose 112 mg/dL (83-110); Potassium 3.3 mmol/L (3.5-5.1); Sodium 141 mmol/L (136-145)
[2019-04-06 08:31] LABS: Analyzer IN Cardio OR; CO2 Tension 34.7 mmHg (35.0-45.0); Calcium, Ionized 1.16 mmol/L (1.12-1.30); Carboxyhemoglobin (COHb) 1.2 gm% (0.0-3.0); O2 Tension (PaO2) 352.3 mmHg (> 70.0); Potassium - ABG Lab 3.85 mmol/L (3.70-5.30)
[2019-04-06 08:32] LABS: Actual Bicarbonate (HCO3a) 21.4 mEq/L (22-28); Analyzer IN Cardio OR; Base Excess (BEa) -2.9 mEq/L (-2.0 to +3.0); CO2 Tension 35.2 mmHg (35.0-45.0); Calcium, Ionized 0.99 mmol/L (1.12-1.30); Hemoglobin (Hb) 10.7 g/dL (14.0-18.0); O2 Tension (PaO2) 476.3 mmHg (> 70.0)
[2019-04-06 08:32] LABS: Actual Bicarbonate (HCO3a) 19.4 mEq/L (22-28); Analyzer IN Cardio OR; Base Excess (BEa) -5.9 mEq/L (-2.0 to +3.0); CO2 Tension 37.8 mmHg (35.0-45.0); Calcium, Ionized 1.11 mmol/L (1.12-1.30); Carboxyhemoglobin (COHb) 0.2 gm% (0.0-3.0); O2 Tension (PaO2) 304.8 mmHg (> 70.0); Potassium - ABG Lab 3.99 mmol/L (3.70-5.30); pH, Arterial 7.33 (7.35-7.45)
[2019-04-06 08:33] LABS: Actual Bicarbonate (HCO3a) 20.3 mEq/L (22-28); Analyzer IN Cardio OR; Base Excess (BEa) -3.2 mEq/L (-2.0 to +3.0); CO2 Tension 30.4 mmHg (35.0-45.0); Calcium, Ionized 1.04 mmol/L (1.12-1.30); Carboxyhemoglobin (COHb) 0.3 gm% (0.0-3.0); Hemoglobin (Hb) 9.4 g/dL (14.0-18.0); O2 Tension (PaO2) 405.5 mmHg (> 70.0); Potassium - ABG Lab 4.86 mmol/L (3.70-5.30); pH, Arterial 7.44 (7.35-7.45)
[2019-04-06 08:33] LABS: Actual Bicarbonate (HCO3a) 25.8 mEq/L (22-28); Analyzer IN Cardio OR; Base Excess (BEa) 0.9 mEq/L (-2.0 to +3.0); CO2 Tension 42.4 mmHg (35.0-45.0); Calcium, Ionized 1.03 mmol/L (1.12-1.30); Carboxyhemoglobin (COHb) 0.2 gm% (0.0-3.0); Hemoglobin (Hb) 9.5 g/dL (14.0-18.0); Potassium - ABG Lab 5.02 mmol/L (3.70-5.30)
[2019-04-06 08:33] LABS: Actual Bicarbonate (HCO3v) 47 mEq/L (22-28); Analyzer IN Cardio OR; Base Excess 20.5 mEq/L (-2.0 to +3.0); Calcium, Ionized 0.87 mmol/L (1.16-1.32); Chloride (ABG LAB) 108 mmol/L (98-106); Hemoglobin (Hb) 9.2 g/dL (12.6-17.4); Potassium - ABG Lab 4.47 mmol/L (3.70-5.30); Sodium 157.1 mmol/L (133-146); pH (venous) 7.47 (7.32-7.43)
[2019-04-06 08:34] LABS: Puncture Site ALINE
[2019-04-06 08:34] LABS: Puncture Site ALINE
[2019-04-06 08:34] LABS: Actual Bicarbonate (HCO3a) 21.4 mEq/L (22-28); Analyzer IN Cardio OR; Base Excess (BEa) -2.7 mEq/L (-2.0 to +3.0); CO2 Tension 34.6 mmHg (35.0-45.0); Calcium, Ionized 1.21 mmol/L (1.12-1.30); Carboxyhemoglobin (COHb) 0.1 gm% (0.0-3.0); O2 Tension (PaO2) 493.1 mmHg (> 70.0); Potassium - ABG Lab 4.02 mmol/L (3.70-5.30); pH, Arterial 7.41 (7.35-7.45)
[2019-04-06 08:35] LABS: Puncture Site ALINE
[2019-04-06 08:38] LABS: Puncture Site ALINE
[2019-04-06 08:38] LABS: Puncture Site ALINE
[2019-04-06 08:38] LABS: Puncture Site ALINE
[2019-04-06] MEDS: Tamsulosin HCl 0.4 MG CAP PO SCH (09:58)
[2019-04-06] MEDS: Potassium Chloride 10 MEQ TAB PO SCH ×2 (09:59→17:42)
[2019-04-06] MEDS: Carvedilol 6.25 MG TAB PO SCH ×2 (09:59→17:42)
[2019-04-06] MEDS: Amiodarone 200 MG TAB PO SCH ×2 (10:00→22:03)
[2019-04-06] MEDS: Furosemide 40 MG TAB PO SCH (10:00)
[2019-04-06] MEDS: Amlodipine 5 MG TAB PO SCH (10:00)
[2019-04-06] MEDS: Insulin Glargine 20 UNITS in Pre-Filled Syringe 1 EACH SC SCH (10:02)
[2019-04-06] MEDS: Aspirin 325 mg Enteric Coated Tablet PO SCH (10:09)
[2019-04-06] MEDS: Bupropion 150 MG SR TAB PO SCH (10:35)
[2019-04-06] MEDS: Insulin Regular 300 UNITS/3 ML VIAL SC PRN (12:27)
[2019-04-06 12:39] VITALS: BMI 28.7
[2019-04-06] MEDS ORDERED: Potassium Chloride 20 MEQ TAB PO SCH (13:00)
--- NOTE | 2019-04-06 17:23 | PDOC.HOSPP ---
- Subjective Encounter Date: 04/06/19 Encounter Time: 16:00 Subjective: Mr. Pérez was seen today in follow-up of CAD s/p CABG. He does not have any complaints. His notes continued swelling in his legs. He denies chest pain or difficulty breathing - Objective Vital Signs & Weight: Vital Signs (12 hours) Temp Pulse Pulse Pulse Resp BP BP 04/06/19 13:22 109 H 95 123/56 L 04/06/19 11:06 97.6 F 74 18 04/06/19 10:00 51 L 147/59 H 04/06/19 09:59 147/59 H 04/06/19 09:30 100 55 L 153/70 H 04/06/19 08:00 04/06/19 07:49 98.4 F 50 L 16 BP BP BP Pulse Ox Pulse Ox Pulse Ox 04/06/19 13:22 109/55 L 98 96 04/06/19 11:06 124/61 95 04/06/19 10:00 04/06/19 09:59 04/06/19 09:30 128/58 L 95 95 04/06/19 08:00 94 L 04/06/19 07:49 147/59 H 94 L Weight Admit Weight 170 lb 6.4 oz Weight 172 lb 9.6 oz Most Recent Monitor Data Heart Rate from ECG 78 NIBP 142/76 NIBP BP-Mean 98 Respiration from ECG 28 SpO2 92 I&O: 04/05/19 04/06/19 04/07/19 06:59 06:59 06:59 Intake Total 780 1030 Output Total 1050 1550 Balance -270 -520 Result Diagrams: 04/02/19 05:22 04/06/19 05:00 Additional Labs: Accuchecks 04/06/19 04/06/19 04/06/19 12:59 11:10 05:19 POC Glucose 213 H 214 H 113 H 04/05/19 04/05/19 20:16 17:01 POC Glucose 158 H 162 H Hospitalist ROS - Medication Medications: Active Medications Generic Name Dose Route Start Last Admin Trade Name Freq PRN Reason Stop Dose Admin Amiodarone HCl 400 mg 04/05/19 21:00 04/06/19 10:00 Cordarone PO 400 mg BID SAILAJA Administration Amlodipine Besylate 5 mg 04/03/19 09:00 04/06/19 10:00 Norvasc PO 5 mg DAILY SAILAJA Administration Aspirin 325 mg 04/01/19 09:00 04/06/19 10:09 Ecotrin PO 325 mg DAILY SAILAJA Administration Atorvastatin Calcium 20 mg 03/31/19 21:00 04/05/19 21:25 Lipitor PO 20 mg HS SAILAJA Administration Bisacodyl 10 mg 03/31/19 11:48 04/05/19 09:42 Dulcolax PO 10 mg Q12H PRN Administration Constipation Bupropion HCl 150 mg 04/01/19 09:00 04/06/19 10:35 Wellbutrin Sr PO 150 mg DAILY SAILAJA Administration Carvedilol 6.25 mg 04/01/19 17:00 04/06/19 09:59 Coreg PO 6.25 mg BID-WM SAILAJA Administration Furosemide 40 mg 04/04/19 07:30 04/06/19 10:00 Lasix PO 40 mg DAILY-AC SAILAJA Administration Insulin Glargine 20 units/ 0.2 mls @ 0 mls/hr 04/05/19 09:00 04/06/19 10:02 Miscellaneous Medication SC 0.2 mls QAM SAILAJA Administration Ibuprofen 600 mg 04/03/19 08:17 04/04/19 08:45 Motrin PO 600 mg Q6H PRN Administration Mild Pain (1-3) Insulin Human Regular 0 units 03/31/19 07:01 04/06/19 12:27 Humulin R SC 6 unit .AGGRESSIVE SLIDING PRN Administration Aggressive Sliding Scale Latanoprost 1 drop 03/31/19 21:00 04/05/19 21:25 Xalatan 0.005% Oph Soln EA EYE 1 drop HS SAILAJA Administration Mirtazapine 15 mg 04/04/19 21:00 04/05/19 21:25 Remeron PO 15 mg HS SAILAJA Administration Pantoprazole Sodium 40 mg 04/01/19 09:00 04/06/19 10:02 Protonix PO 40 mg DAILY SAILAJA Administration Potassium Chloride 10 meq 04/02/19 17:00 04/06/19 09:59 Klor-Con 10 PO 10 meq BID-WM SAILAJA Administration Sodium Chloride 10 ml 03/31/19 21:00 04/06/19 10:01 Flush - Normal Saline IVF 10 ml Q12HR SAILAJA Administration Tamsulosin HCl 0.4 mg 04/05/19 09:00 04/06/19 09:58 Flomax PO 0.4 mg DAILY SAILAJA Administration - Exam Eye: PERRL, anicteric sclera Heart: RRR, no murmur, no gallops, no rubs, normal peripheral pulses Respiratory: CTAB, no wheezes, no rales, no ronchi, normal chest expansion Gastrointestinal: soft, non-tender, non-distended, normal bowel sounds, no palpable masses Extremities: no cyanosis, no clubbing, 2+ LE edema (Bilateral lower extremities , slightly decreased from yesterday) Hosp A/P (1) NSTEMI (non-ST elevated myocardial infarction) Code(s): I21.4 - NON-ST ELEVATION (NSTEMI) MYOCARDIAL INFARCTION Status: Acute (2) S/P CABG x 5 Code(s): Z95.1 - PRESENCE OF AORTOCORONARY BYPASS GRAFT Status: Acute (3) Urinary retention Code(s): R33.9 - RETENTION OF URINE, UNSPECIFIED Status: Acute (4) Hypertension Code(s): I10 - ESSENTIAL (PRIMARY) HYPERTENSION Status: Chronic (5) CAD (coronary artery disease) Code(s): I25.10 - ATHSCL HEART DISEASE OF [place] CORONARY ARTERY W/O ANG PCTRS Status: Chronic (6) Diabetes mellitus type 2 in nonobese Code(s): E11.9 - TYPE 2 DIABETES MELLITUS WITHOUT COMPLICATIONS Status: Chronic (7) Chronic kidney disease, stage 3 Code(s): N18.3 - CHRONIC KIDNEY DISEASE, STAGE 3 (MODERATE) Status: Chronic - Plan * NSTEMI- s/p 5 vessel CABG- clinically stable * Urinary retention- continue Holland, and he will go home with a leg bag * Atrial fibrillation- he has been placed on Amiodarone * DM- blood glucose is stable * HTN- blood pressure is stable * Continue to replace Potassium * Disposition as per CV- Surgery
[2019-04-06] MEDS ORDERED: Amiodarone 200 MG TAB PO SCH (17:30)
[2019-04-06] MEDS: Latanoprost 0.005% Ophth Soln 2.5 ml Bottle EA EYE SCH (22:03)
[2019-04-06] MEDS: Atorvastatin Calcium 20 MG TAB PO SCH (22:03)
[2019-04-06] MEDS: Mirtazapine 15 MG TAB PO SCH (22:03)
[2019-04-07 07:18] LABS: Anion Gap 16 mmol/L (10-20); BUN (Urea Nitrogen) 32 mg/dL (8.4-25.7); Calc. Creatinine Clearance 44 mL/min (70-130); Calcium 8.8 mg/dL (7.8-10.44); Carbon Dioxide 23 mmol/L (23-31); Chloride 107 mmol/L (98-107); Estimated GFR-MDRD 44; Glucose 96 mg/dL (83-110); Potassium 3.6 mmol/L (3.5-5.1); Sodium 142 mmol/L (136-145)
[2019-04-07] MEDS: Furosemide 40 MG TAB PO SCH (08:17)
[2019-04-07] MEDS: Potassium Chloride 10 MEQ TAB PO SCH ×2 (08:18→16:00)
[2019-04-07] MEDS: Carvedilol 6.25 MG TAB PO SCH ×2 (08:18→16:00)
[2019-04-07] MEDS: Amiodarone 200 MG TAB PO SCH ×3 (08:18→21:08)
[2019-04-07] MEDS: Bupropion 150 MG SR TAB PO SCH (08:19)
[2019-04-07] MEDS: Tamsulosin HCl 0.4 MG CAP PO SCH (08:19)
[2019-04-07] MEDS: Amlodipine 5 MG TAB PO SCH (08:19)
[2019-04-07] MEDS: Insulin Glargine 20 UNITS in Pre-Filled Syringe 1 EACH SC SCH (08:19)
[2019-04-07] MEDS: Aspirin 325 mg Enteric Coated Tablet PO SCH (08:19)
[2019-04-07] MEDS: Bisacodyl 5 MG TAB PO PRN (08:26)
[2019-04-07] MEDS: Insulin Regular 300 UNITS/3 ML VIAL SC PRN (11:29)
--- NOTE | 2019-04-07 16:24 | PDOC.HOSPP ---
- Subjective Encounter Date: 04/07/19 Encounter Time: 13:00 Subjective: Mr. Pérez was seen today in follow-up of NSTEMI and post CABG. He says he continues to get a bit short of breath when he is up moving around. - Objective Vital Signs & Weight: Vital Signs (12 hours) Temp Pulse Pulse Pulse Resp BP BP 04/07/19 15:51 97.6 F 80 16 04/07/19 11:18 97.5 F L 73 17 04/07/19 09:38 75 70 113/59 L 112/53 L 04/07/19 07:26 98.0 F 78 16 04/07/19 04:51 99.8 F H 77 16 BP Pulse Ox 04/07/19 15:51 132/62 92 L 04/07/19 11:18 120/59 L 95 04/07/19 09:38 04/07/19 07:26 135/63 93 L 04/07/19 04:51 120/57 L 93 L Weight Admit Weight 170 lb 6.4 oz Weight 172 lb 4.8 oz Most Recent Monitor Data Heart Rate from ECG 78 NIBP 142/76 NIBP BP-Mean 98 Respiration from ECG 28 SpO2 92 I&O: 04/06/19 04/07/19 04/08/19 06:59 06:59 06:59 Intake Total 1030 1130 Output Total 1550 1525 Balance -520 -395 Result Diagrams: 04/02/19 05:22 04/07/19 05:13 Additional Labs: Accuchecks 04/07/19 04/07/19 04/06/19 11:05 05:23 20:34 POC Glucose 198 H 105 101 04/06/19 17:11 POC Glucose 131 H Hospitalist ROS - Medication Medications: Active Medications Generic Name Dose Route Start Last Admin Trade Name Freq PRN Reason Stop Dose Admin Amiodarone HCl 400 mg 04/06/19 21:00 04/07/19 15:59 Cordarone PO 400 mg TID SAILAJA Administration Amlodipine Besylate 5 mg 04/03/19 09:00 04/07/19 08:19 Norvasc PO 5 mg DAILY SAILAJA Administration Aspirin 325 mg 04/01/19 09:00 04/07/19 08:19 Ecotrin PO 325 mg DAILY SAILAJA Administration Atorvastatin Calcium 20 mg 03/31/19 21:00 04/06/19 22:03 Lipitor PO 20 mg HS SAILAJA Administration Bisacodyl 10 mg 03/31/19 11:48 04/07/19 08:26 Dulcolax PO 10 mg Q12H PRN Administration Constipation Bupropion HCl 150 mg 04/01/19 09:00 04/07/19 08:19 Wellbutrin Sr PO 150 mg DAILY SAILAJA Administration Carvedilol 6.25 mg 04/01/19 17:00 04/07/19 16:00 Coreg PO 6.25 mg BID-WM SAILAJA Administration Furosemide 40 mg 04/04/19 07:30 04/07/19 08:17 Lasix PO 40 mg DAILY-AC SAILAJA Administration Insulin Glargine 20 units/ 0.2 mls @ 0 mls/hr 04/05/19 09:00 04/07/19 08:19 Miscellaneous Medication SC 0.2 mls QAM SAILAJA Administration Ibuprofen 600 mg 04/03/19 08:17 04/04/19 08:45 Motrin PO 600 mg Q6H PRN Administration Mild Pain (1-3) Insulin Human Regular 0 units 03/31/19 07:01 04/07/19 11:29 Humulin R SC 3 unit .AGGRESSIVE SLIDING PRN Administration Aggressive Sliding Scale Latanoprost 1 drop 03/31/19 21:00 04/06/19 22:03 Xalatan 0.005% Ophth Soln EA EYE 1 drop HS SAILAJA Administration Mirtazapine 15 mg 04/04/19 21:00 04/06/19 22:03 Remeron PO 15 mg HS SAILAJA Administration Pantoprazole Sodium 40 mg 04/01/19 09:00 04/07/19 08:19 Protonix PO 40 mg DAILY SAILAJA Administration Potassium Chloride 10 meq 04/02/19 17:00 04/07/19 16:00 Klor-Con 10 PO 10 meq BID-WM SAILAJA Administration Sodium Chloride 10 ml 03/31/19 21:00 04/07/19 08:19 Flush - Normal Saline IVF 10 ml Q12HR SAILAJA Administration Tamsulosin HCl 0.4 mg 04/05/19 09:00 04/07/19 08:19 Flomax PO 0.4 mg DAILY SAILAJA Administration - Exam Eye: PERRL, anicteric sclera Heart: RRR, no murmur, no gallops, no rubs, normal peripheral pulses Respiratory: CTAB, no wheezes, no rales, no ronchi, normal chest expansion, no tachypnea, normal percussion Gastrointestinal: soft, non-tender, non-distended, normal bowel sounds, no palpable masses, no hepatomegaly, no splenomegaly Extremities: no cyanosis, 2+ LE edema (Both lower extremities) Hosp A/P (1) NSTEMI (non-ST elevated myocardial infarction) Code(s): I21.4 - NON-ST ELEVATION (NSTEMI) MYOCARDIAL INFARCTION Status: Acute (2) S/P CABG x 5 Code(s): Z95.1 - PRESENCE OF AORTOCORONARY BYPASS GRAFT Status: Acute (3) Urinary retention Code(s): R33.9 - RETENTION OF URINE, UNSPECIFIED Status: Acute (4) Hypertension Code(s): I10 - ESSENTIAL (PRIMARY) HYPERTENSION Status: Chronic (5) CAD (coronary artery disease) Code(s): I25.10 - ATHSCL HEART DISEASE OF [place] CORONARY ARTERY W/O ANG PCTRS Status: Chronic (6) Diabetes mellitus type 2 in nonobese Code(s): E11.9 - TYPE 2 DIABETES MELLITUS WITHOUT COMPLICATIONS Status: Chronic (7) Chronic kidney disease, stage 3 Code(s): N18.3 - CHRONIC KIDNEY DISEASE, STAGE 3 (MODERATE) Status: Chronic (8) Atrial fibrillation Code(s): I48.91 - UNSPECIFIED ATRIAL FIBRILLATION Status: Acute - Plan * NSTEMI- s/p 5 vessel CABG- clinically stable * Urinary retention- continue Holland * Atrial fibrillation- he has been placed on Amiodarone- he is now in sinus * Volume overload- continue Lasix p.o. daily * Acute on chronic kidney injury( likely from diuretics- stable renal function * DM- blood glucose is stable * HTN- blood pressure is stable * Continue to replace Potassium * Disposition as per CV- Surgery
[2019-04-07] MEDS: Mirtazapine 15 MG TAB PO SCH (21:08)
[2019-04-07] MEDS: Latanoprost 0.005% Ophth Soln 2.5 ml Bottle EA EYE SCH (21:09)
[2019-04-07] MEDS: Atorvastatin Calcium 20 MG TAB PO SCH (21:09)
[2019-04-08 05:15] LABS: Anion Gap 12 mmol/L (10-20); BUN (Urea Nitrogen) 30 mg/dL (8.4-25.7); Calc. Creatinine Clearance 44 mL/min (70-130); Calcium 8.5 mg/dL (7.8-10.44); Carbon Dioxide 22 mmol/L (23-31); Chloride 107 mmol/L (98-107); Estimated GFR-MDRD 44; Glucose 98 mg/dL (83-110); Potassium 3.6 mmol/L (3.5-5.1); Sodium 137 mmol/L (136-145)
--- NOTE | 2019-04-08 05:41 | DIS ---
DATE OF ADMISSION: 03/27/2019 DATE OF DISCHARGE: 04/07/2019 PRINCIPAL DIAGNOSIS: Coronary artery disease with acute coronary syndrome. SECONDARY DIAGNOSES: Acute kidney injury. Secondary diagnoses present, but not specifically addressed; hypertension, diabetes, hypercholesterolemia, chronic renal insufficiency. PROCEDURES PERFORMED: Cardiac catheterization on 03/28/2019. Coronary artery bypass grafting x5 with left internal mammary artery to the distal LAD, separate reverse greater saphenous vein graft from the aorta to the diagonal, from the aorta to the obtuse marginal, sequential reverse greater saphenous vein graft from the aorta to the right coronary artery at the crux to the posterolateral branch of the right coronary artery on 03/30/2019. HISTORY OF PRESENT ILLNESS AND HOSPITAL COURSE: This patient is a 78-year-old diabetic man with known coronary artery disease, having undergone previous stenting of his LAD. In retrospect, he has been having some diminished exercise tolerance over a couple of months and over the week prior to the presentation, he had been developing dyspnea on exertion associated with some chest pressure and burning. He had an episode more severe than others and it radiated to his jaw and his family insisted he go to the hospital. He was found to have a left bundle branch block on his EKG and his troponins were mildly elevated, but change only a minimal amount over a brief period of observation. Cardiac catheterization demonstrated extensive disease including some disease in the ostium and the distal aspect of his left main. Because of some mild renal insufficiency, he was hydrated and his surgery was delayed a day and then he underwent coronary artery bypass grafting. He did have some mild elevation of his creatinine that promptly resolved with hydration. He was very slow to mobilize and had some lethargy that seems greater than what he had preoperatively. He had some persistent lower extremity edema, although he was tolerating room air oxygen well. He was restarted on gentle diuresis. There is some drainage from his leg incisions that seem to be compatible with a combination of edema and fat necrosis. Late in his postoperative course, he developed atrial fibrillation that ultimately was consistently converted to a sinus rhythm with fairly high dose oral amiodarone. He is now being discharged home with his local family. He has been on amiodarone 400 mg t.i.d. in the hospital, he is to take 400 mg b.i.d. for two weeks, then 200 mg b.i.d. for 2 weeks, and then cut back to 200 once a day. He had urinary retention early in his hospital stay and postoperatively and it recurred after removal of his Holland, so he is being sent home on Flomax with an indwelling Holland and arrangements being made for an outpatient voiding trial with one of the urologists. I will plan on seeing him in the office in about a week with repeat labs. Job ID: [id number]
[2019-04-08] MEDS: Potassium Chloride 10 MEQ TAB PO SCH (09:16)
[2019-04-08] MEDS: Amlodipine 5 MG TAB PO SCH (09:17)
[2019-04-08] MEDS: Tamsulosin HCl 0.4 MG CAP PO SCH (09:19)
[2019-04-08] MEDS: Amiodarone 200 MG TAB PO SCH ×2 (09:19→15:34)
[2019-04-08] MEDS: Carvedilol 6.25 MG TAB PO SCH (09:20)
[2019-04-08] MEDS: Aspirin 325 mg Enteric Coated Tablet PO SCH (09:20)
[2019-04-08] MEDS: Furosemide 40 MG TAB PO SCH (09:20)
[2019-04-08] MEDS: Bupropion 150 MG SR TAB PO SCH (09:21)
[2019-04-08] MEDS: Insulin Glargine 20 UNITS in Pre-Filled Syringe 1 EACH SC SCH (09:21)
[2019-04-08] MEDS: Insulin Regular 300 UNITS/3 ML VIAL SC PRN (12:16)
[2019-04-08] MEDS: Bisacodyl 5 MG TAB PO PRN (12:19)
[2019-04-08 17:31] VITALS: BP 122/60; TEMP 97.8
--- NOTE | 2019-04-12 12:03 | DIS ---
DATE OF ADMISSION: 03/27/2019 DATE OF DISCHARGE: 04/08/2019 ADDENDUM: This is addendum to discharge which was dictated by Dr. Finch on April 07, 2019. The patient's discharge was postponed because of his shortness of breath, which improved. His vitals; blood pressure is 100/52, pulse is 71, respiratory rate is 99% on room air, and temperature is 97.6. He was seen and examined before he was discharged. Please refer to the previous discharge regarding his diet, activity, and followups medications at the time of discharge. Job ID: [id number]
== END 2019-04-08 17:25 | disposition home or self-care (01) | DRG 233 ==
LOC: ERS 10:04 → OBSVTOIN 12:31 → 2SW 12:31 → CCU 03-30 07:01 → 2NO 04-01 20:58
PROVIDERS: ADMIT Internal Medicine; ATTEND Internal Medicine
PROC: 4A023N7 Measurement of Cardiac Sampling and Pressure, Left Heart, Percutaneous Approach (ICD-10-PCS; 2019-03-28)
PROC: B2151ZZ Fluoroscopy of Left Heart using Low Osmolar Contrast (ICD-10-PCS; 2019-03-28)
PROC: B2111ZZ Fluoroscopy of Multiple Coronary Arteries using Low Osmolar Contrast (ICD-10-PCS; 2019-03-28)
PROC: 021309W Bypass Coronary Artery, Four or More Arteries from Aorta with Autologous Venous Tissue, Open Approach (ICD-10-PCS; principal; 2019-03-30)
PROC: 02100Z9 Bypass Coronary Artery, One Artery from Left Internal Mammary, Open Approach (ICD-10-PCS; 2019-03-30)
PROC: 06BQ4ZZ Excision of Left Saphenous Vein, Percutaneous Endoscopic Approach (ICD-10-PCS; 2019-03-30)
PROC: 5A1221Z Performance of Cardiac Output, Continuous (ICD-10-PCS; 2019-03-30)
DX: I21.4 Non-ST elevation (NSTEMI) myocardial infarction (principal); I50.43 Acute on chronic combined systolic (congestive) and diastolic (congestive) heart failure; J96.01 Acute respiratory failure with hypoxia; I13.0 Hypertensive heart and chronic kidney disease with heart failure and stage 1 through stage 4 chronic kidney disease, or unspecified chronic kidney disease; N17.9 Acute kidney failure, unspecified; I25.110 Atherosclerotic heart disease of native coronary artery with unstable angina pectoris; E78.5 Hyperlipidemia, unspecified; E78.00 Pure hypercholesterolemia, unspecified; N18.3 Chronic kidney disease, stage 3 (moderate); E11.22 Type 2 diabetes mellitus with diabetic chronic kidney disease; I44.7 Left bundle-branch block, unspecified; R33.9 Retention of urine, unspecified; I48.91 Unspecified atrial fibrillation; Z79.899 Other long term (current) drug therapy; Z79.82 Long term (current) use of aspirin; Z87.891 Personal history of nicotine dependence; Z79.4 Long term (current) use of insulin; Z86.73 Personal history of transient ischemic attack (TIA), and cerebral infarction without residual deficits; Z95.5 Presence of coronary angioplasty implant and graft
CPT/HCPCS: 36415; 36416; 36430; 71045; 80048; 80053; 80061; 82553; 82805; 83036; 83735; 84100; 84484; 85025; 85347; 85610; 85730; 86850; 86900; 86901; 93005; 93010; 93306; 93458; 93798; 94760; 99152; C1769; J0690; J1100; J1642; J1644; J1650; J1815; J1885; J1940; J2001; J2150; J2250; J2405; J2440; J2720; J3010; J3370; J3475; J3480; J3490; J7050; P9045; Q9967; S0017; S0028

== ENCOUNTER 2019-04-13 02:01 | Emergency (ER) | payer MEDICARE, MEDICAID ==
[2019-04-13 03:00] LABS: Bilirubin Negative (Negative); Blood, Urine 3+ (Negative); Clarity Extra Turbid (Clear); Glucose, Urine (Dipstick) Normal (Negative); Leukocyte 75 Leu/uL (Negative); Mucous/LPF 4+ LPF (<2+); Nitrite Negative (Negative); Protein, Urine (Dipstick) 300 mg/dL (Neg-Trace); RBC/HPF Greater than 50 HPF (0-3); Squamous Epithelial None Seen HPF (0-3); Urobilinogen 12 mg/dL (Less than 2); WBC/HPF Greater than 50 HPF (0-3)
[2019-04-13 03:01] LABS: Bacteria/HPF 1+ HPF (None Seen)
[2019-04-13 03:08] LABS: #Eosinphils 0.1 thou/uL (0.0-0.7); #Lymphocytes 0.6 thou/uL (1.20-3.40); #Monocytes 0.5 thou/uL (0.11-0.59); #Neutrophils 7.7 thou/uL (1.40-6.50); %Eosinophils 1.4 % (0.0-10.0); %Lymphocytes 7.1 % (21.0-51.0); %Monocytes 5.6 % (0.0-10.0); %Neutrophils 85.9 % (42.0-75.0); Hemoglobin 10.3 g/dL (14.0-18.0); Mean Corpuscular Hemoglobin 31.1 pg (27.0-31.0); Mean Corpuscular Volume 97.2 fL (78.0-98.0); Platelet Count 323 thou/uL (130-400); RBC Distribution Width 13.3 % (11.5-14.5); Red Blood Cell (RBC) Count 3.32 mill/uL (4.70-6.10)
[2019-04-13 03:28] LABS: ALT (SGPT) 24 U/L (8-55); AST (SGOT) 18 U/L (5-34); Albumin 3.1 g/dL (3.4-4.8); Alkaline Phosphatase 103 U/L (40-150); Anion Gap 13 mmol/L (10-20); BUN (Urea Nitrogen) 24 mg/dL (8.4-25.7); Bilirubin, Total 0.8 mg/dL (0.2-1.2); Calc. Creatinine Clearance 0 mL/min (70-130); Carbon Dioxide 21 mmol/L (23-31); Chloride 111 mmol/L (98-107); Estimated GFR-MDRD 48; Globulin 2.9 g/dL (2.4-3.5); Glucose 148 mg/dL (83-110); Sodium 140 mmol/L (136-145)
== END 2019-04-13 04:10 | disposition home or self-care (01) ==
LOC: ERS 02:01
DX: N39.0 Urinary tract infection, site not specified (principal); I13.0 Hypertensive heart and chronic kidney disease with heart failure and stage 1 through stage 4 chronic kidney disease, or unspecified chronic kidney disease; E11.22 Type 2 diabetes mellitus with diabetic chronic kidney disease; I50.9 Heart failure, unspecified; N18.9 Chronic kidney disease, unspecified; E78.00 Pure hypercholesterolemia, unspecified; Z86.73 Personal history of transient ischemic attack (TIA), and cerebral infarction without residual deficits; Z87.891 Personal history of nicotine dependence; Z79.4 Long term (current) use of insulin; Z79.899 Other long term (current) drug therapy
CPT/HCPCS: 36415; 80053; 81003; 81015; 85025; 87086

== ENCOUNTER 2019-05-01 11:45 | Emergency (ER) | payer MEDICARE, OTHER ==
[2019-05-01] MEDS ORDERED: Norepinephrine 4 MG/4 ML VIAL ONE (11:56)
[2019-05-01] MEDS ORDERED: EPINEPHrine 1 MG/10 ML Abboject SYRINGE ONE ×3 (11:56→14:00)
[2019-05-01] MEDS ORDERED: Rocuronium Bromide 10 MG/ML (10ML VIAL) ONE (12:12)
[2019-05-01] MEDS ORDERED: Ketamine 50 MG/ML (10ML VIAL) ONE (12:12)
[2019-05-01 12:26] LABS: CO2 Tension (PvCO2) 46.2 mmHg (40.0-50.0); Calcium, Ionized 1.08 mmol/L (See Comments:); Chloride 107 mmol/L (98-107); Hemoglobin - Calc 10.2 g/dL (14.0-18.0); Potassium 4.5 mmol/L (3.5-5.1); Sodium 138 mmol/L (138-145); T. Carbon Dioxide 21.4 mmol/L (22.0-28.0); vO2 Saturation-calc 61.6 % (60.0-85.0)
[2019-05-01 12:38] LABS: #Eosinphils 0.1 thou/uL (0.0-0.7); #Lymphocytes 1.6 thou/uL (1.20-3.40); #Neutrophils 12.3 thou/uL (1.40-6.50); %Basophils 0.3 % (0.0-1.0); %Eosinophils 0.5 % (0.0-10.0); %Lymphocytes 10.5 % (21.0-51.0); %Monocytes 6.6 % (0.0-10.0); %Neutrophils 82.1 % (42.0-75.0); Hemoglobin 9.4 g/dL (14.0-18.0); Mean Corpuscular HGB CONC 30.8 g/dL (32.0-36.0); Mean Corpuscular Hemoglobin 28.9 pg (27.0-31.0); Mean Corpuscular Volume 93.9 fL (78.0-98.0); Mean Platelet Volume 9.3 fL (7.4-10.4); Platelet Count 264 thou/uL (130-400); RBC Distribution Width 14.9 % (11.5-14.5); Red Blood Cell (RBC) Count 3.26 mill/uL (4.70-6.10)
[2019-05-01 12:42] LABS: Actual Bicarbonate (HCO3a) 14.5 mEq/L (22-28); Analyzer IN Cardio ER; Base Excess (BEa) -12.4 mEq/L (-2.0 to +3.0); CO2 Tension 36.4 mmHg (35.0-45.0); Calcium, Ionized 1.33 mmol/L (1.12-1.30); Carboxyhemoglobin (COHb) 0.3 gm% (0.0-3.0); Hemoglobin (Hb) 10.2 g/dL (14.0-18.0); Potassium - ABG Lab 5.42 mmol/L (3.70-5.30)
--- NOTE | 2019-05-01 12:43 | RAD ---
EXAM: XR Chest 1 View Portable PROVIDED CLINICAL HISTORY: Cardiogenic shock COMPARISON: 04/02/2019 FINDINGS: Cardiac silhouette appears enlarged, which may be least partially on the basis of portable technique. Endotracheal tube is noted, the tip of which deviates rightward and its position relative to the mimi is not well discerned on the basis of this study. Enteric catheter is noted, the tip of which is not visualized but is below the diaphragm. There is bilateral predominantly perihilar airspace disease. There is obscuration of the left hemidiaphragm that may reflect pleural and/or parenchymal o pacity. The supine nature the study is not sensitive for detection of pneumothorax. IMPRESSION: 1. ETT and enteric catheter positions as described. 2. Diffuse bilateral airspace disease may reflect aspiration, edema or pneumonia. 3. Obscuration of left hemidiaphragm may reflect left basilar pleural and/or parenchymal opacity.
[2019-05-01 12:45] LABS: INR-International Normal Ratio 1.3; PTT 23.3 SEC (22.9-36.1); Prothrombin Time 16.5 SEC (12.0-14.7)
[2019-05-01 12:55] LABS: ALT (SGPT) 32 U/L (8-55); AST (SGOT) 31 U/L (5-34); Albumin 2.6 g/dL (3.4-4.8); Alkaline Phosphatase 120 U/L (40-150); Anion Gap 14 mmol/L (10-20); BUN (Urea Nitrogen) 38 mg/dL (8.4-25.7); Bilirubin, Total 0.6 mg/dL (0.2-1.2); CK (CPK) 27 U/L (30-200); Calc. Creatinine Clearance 0 mL/min (70-130); Calcium 8.3 mg/dL (7.8-10.44); Carbon Dioxide 21 mmol/L (23-31); Chloride 104 mmol/L (98-107); Estimated GFR-MDRD 35; Globulin 2.9 g/dL (2.4-3.5); Glucose 215 mg/dL (83-110); Potassium 4.6 mmol/L (3.5-5.1); Protein, Total 5.5 g/dL (5.8-8.1); Sodium 134 mmol/L (136-145)
[2019-05-01 12:56] LABS: O2 Tension (PaO2) 46.9 mmHg (> 70.0); pH, Arterial 7.22 (7.35-7.45)
[2019-05-01 12:57] LABS: CKMB 0.9 ng/mL (0-6.6)
[2019-05-01 12:57] LABS: Puncture Site RRA
[2019-05-01] MEDS ORDERED: Calcium Chloride 1 GM/10 ML Abboject SYRINGE ONE (14:00)
--- NOTE | 2019-05-01 15:16 | CON ---
DATE OF CONSULTATION: 05/01/2019 REASON FOR CONSULTATION: This patient was seen in the emergency room. I was asked to consult this patient, who came in with severe bradycardia. HISTORY OF PRESENT ILLNESS: This very unfortunate 78-year-old gentleman, who underwent bypass surgery on March 30, 2019, with 5-vessel bypass due to severe 3-vessel coronary artery disease and left main stenosis, had been seen in the emergency room on April 13 due to Holland catheter problems. He then apparently was discharged from the emergency room. He then was at home and notes he was not feeling well and EMS was called. He was found to have severe bradycardia with heart rates in the 30s, appeared to be complete AV heart block. He was started on a pacemaker externally apparently in the ambulance. He was brought to the emergency room. Since that time, his heart rate has not regained. He was placed on external pacemaker, which was capturing at times, other times not. The patient then continued to have problems. CPR was initiated. The patient also was intubated due to severe hypoxemia. His potassium was 4.5. He does have history of chronic kidney disease, but there was no indication that the potassium was severely elevated. His ABG showed a pO2 of 37. After intubation, O2 saturations were 61%. We continued aggressive CPR with protocol and the patient did not respond. He was also placed on dopamine, which did not increase the heart rate. We were attempted to take the patient to the cardiac produce laborer for temporary pacemaker. When the patient became asystole, he did not respond to further resuscitation effort and it was discussed with the family by the ER physician and the code was then called and the patient . The patient unfortunately, but after all events to resuscitate the patient, we were unable to take the patient to the produce laborer prior to him expiring. PAST MEDICAL HISTORY: Significant for three-vessel coronary artery disease with bypass surgery, five-vessel bypass after having a non-ST segment elevation myocardial infarction. He also had stents previously placed in the coronary arteries. He had chronic kidney disease. He also had a history of hypertension, hypercholesterolemia, and type 2 diabetes. SOCIAL HISTORY: He is . He has children, who are alive and well. FAMILY HISTORY: Noncontributory at this time. ALLERGIES: NONE. MEDICATIONS: Prior to being seen in the emergency room were; 1. Aspirin. 2. Potassium. 3. Flomax. 4. Norvasc. 5. Amiodarone. 6. Vitamin D3. 7. Gabapentin. 8. Lasix. 9. B12 vitamins. 10. Mirtazapine. 11. Coreg. 12. Protonix. 13. Wellbutrin. 14. Pravastatin. 15. Victoza. 16. Ophthalmic drops. 17. Lantus insulin. REVIEW OF SYSTEMS: Not obtainable. PHYSICAL EXAMINATION: GENERAL: Reveals an elderly, ill gentleman, who at the time I saw was already undergoing CPR, but only brief episodes of the patient had a severe bradycardia, but appeared to be complete AV heart block and then external pacemaker have been placed and at times, it was not capturing despite being turned up to the maximum amount. VITAL SIGNS: His blood pressure was 62/38 and heart rate was in the 20s to 30s. HEENT: The patient is already intubated. CHEST: His chest has a well-healed surgical incision after median sternotomy. I do not hear any significant rales or rhonchi. CARDIOVASCULAR: Almost it was inaudible due to severe bradycardia. ABDOMEN: Soft. Positive bowel sounds. EXTREMITIES: Showed no significant clubbing or cyanosis. Pedal pulses are difficult to palpate. NEUROLOGIC: The patient is unresponsive. LABORATORY DATA: EKG shows what appears to be third-degree AV heart block with severe bradycardia. IMPRESSION AND PLAN: 1. Acute third-degree heart block with severe bradycardia and eventually asystole. The patient may have suffered a large pulmonary embolus as his ABG showed a pH of 7.24 with a pO2 of 37 and a pO2 of 46 while being on oxygen and being intubated. 2. History of severe coronary artery disease status post bypass surgery. It is possible he closed one of his grafts, uncertain, but could not determine whether there were any acute EKG changes. Unfortunately, the patient was pronounced in the emergency room at approximately 12:[address] will inform Dr. Hightower that the patient has . Job ID: [id number]
== END 2019-05-01 12:53 | disposition expired ==
LOC: ERS 11:45
DX: I46.9 Cardiac arrest, cause unspecified (principal); I13.0 Hypertensive heart and chronic kidney disease with heart failure and stage 1 through stage 4 chronic kidney disease, or unspecified chronic kidney disease; N18.9 Chronic kidney disease, unspecified; I50.9 Heart failure, unspecified; E78.00 Pure hypercholesterolemia, unspecified; E11.22 Type 2 diabetes mellitus with diabetic chronic kidney disease; Z86.73 Personal history of transient ischemic attack (TIA), and cerebral infarction without residual deficits; Z95.5 Presence of coronary angioplasty implant and graft; Z87.891 Personal history of nicotine dependence; Z79.899 Other long term (current) drug therapy; Z79.4 Long term (current) use of insulin
CPT/HCPCS: 31500; 71045; 80053; 82330; 82550; 82553; 82803; 82805; 83880; 84484; 85025; 85610; 85730; 92950; 93005; 94002; 94760; 96365; 96375; 96376; J0171